=== PATIENT | male | born 1965 | race Caucasian/White ===

== ENCOUNTER 2021-11-20 09:26 | Outpatient (CLI) | payer MEDICAID, OTHER ==
[2021-11-20 12:25] LABS: BASOPHILS % (AUTO) 0.6 %; EOSINOPHILS # (AUTO) 0.1 10^3/uL (0.0-0.7); EOSINOPHILS % (AUTO) 2.2 %; HCT - HEMATOCRIT 47.5 % (42.0-52.0); HGB - HEMOGLOBIN 16.6 g/dL (14.0-18.0); LYMPHOCYTES # (AUTO) 1.8 10^3/uL (1.5-3.5); LYMPHOCYTES % (AUTO) 34.5 %; MEAN CORPUSCULAR HEMOGLOBIN 32.3 pg (27.0-31.0); MEAN CORPUSCULAR HGB CONC 34.9 g/dL (32.0-36.0); MEAN CORPUSCULAR VOLUME 92.4 fL (80.0-94.0); MONOCYTES # (AUTO) 0.4 10^3/uL (0.0-1.0); MONOCYTES % (AUTO) 8.5 %; NEUTROPHILS # (AUTO) 2.7 10^3/uL (1.5-6.6); PLT - PLATELET COUNT 185 10^3/uL (130-450); RED BLOOD COUNT 5.14 10^6/uL (4.70-6.10); RED CELL DISTRIBUTION WIDTH 13.9 % (12.0-15.0); WHITE BLOOD COUNT 5.1 x10^3/uL (4.8-10.8)
[2021-11-20 13:10] LABS: THYROID STIMULATING HORMONE 2.72 uIU/mL (0.34-5.60)
[2021-11-20 13:13] LABS: FERRITIN 53.6 ng/mL (23.9-336.2)
[2021-11-20 13:22] LABS: % IRON SATURATION 49 % (20-50); ALBUMIN 4.3 g/dL (3.2-5.5); ALBUMIN/GLOBULIN RATIO 1.4 (1.0-2.2); ALKALINE PHOSPHATASE 56 IU/L (42-121); ALT ALANINE AMINOTRANSFERASE 39 IU/L (10-60); AST ASPARTATE AMINOTRANSFERASE 29 IU/L (10-42); BILIRUBIN,TOTAL 1.6 mg/dL (0.2-1.0); BUN - BLOOD UREA NITROGEN 16 mg/dL (6-20); CALCIUM 9.2 mg/dL (8.5-10.3); CARBON DIOXIDE - CO2 28 mmol/L (21-32); CHLORIDE 103 mmol/L (101-111); CREATININE 0.8 mg/dL (0.6-1.2); GFR - MDRD 100 (>89); GLUCOSE 127 mg/dL (70-100); IRON 182 ug/dL (45-182); POTASSIUM 3.5 mmol/L (3.5-5.0); SODIUM 137 mmol/L (135-145); TOTAL IRON BINDING CAPACITY 372 ug/dL (250-450); TOTAL PROTEIN 7.3 g/dL (6.7-8.2); TRANSFERRIN 266 mg/dL (180-329)
[2021-11-20 13:50] LABS: CHOL/HDL RATIO 3.1 (<5.0); CHOLESTEROL 111 mg/dL; HDL CHOLESTEROL 36 mg/dL; LDL CHOLESTEROL,CALCULATED 47 mg/dL; LDL/HDL RATIO 1.3 (<3.6); TRIGLYCERIDES 139 mg/dL; VLDL CHOLESTEROL 28 mg/dL
== END 2021-11-20 09:27 | disposition home or self-care (01) ==
LOC: LAB.N 09:26
PROVIDERS: ATTEND Family Medicine
DX: I10 Essential (primary) hypertension (principal); G70.9 Myoneural disorder, unspecified; D75.1 Secondary polycythemia
CPT/HCPCS: 36415; 80053; 80061; 82728; 83540; 83721; 84443; 84466; 85025

== ENCOUNTER 2021-11-21 22:34 | Emergency (ER) | payer MEDICAID ==
--- NOTE | 2021-11-22 02:35 | ED Physician Documentation ---
History of Present Illness - Stated complaint Stated Complaint: HBP - Chief complaint Chief Complaint: General - History obtained from History obtained from: Patient - History of Present Illness Timing: Today Pain level now: 0 - Additonal information Additional information: Has vague headache all day which he has difficulty describing, says it just feels weird and described something of a fullness sensation of his head. He has not been checking his blood pressures, but today he used a relatives BP cuff and had readings initially 140s/80s, then as high as 210/95. At that time he took a clonidine, which he has as a PRN rx with parameters when to take it. His blood pressure has improved to 157/93 by the time of this evaluation and his symptoms have resolved. Patient had outpatient blood work 11/20 (normal CBC, normal CMP, glucose 127, total bilirubin 1.6). Review of Systems Constitutional: reports: Reviewed and negative Eyes: reports: Reviewed and negative Ears: reports: Reviewed and negative Nose: reports: Reviewed and negative Cardiac: reports: Reviewed and negative Respiratory: reports: Reviewed and negative GI: reports: Reviewed and negative Neurologic: reports: Headache. denies: Generalized weakness, Focal weakness, Numbness, Difficulty speaking, Near syncope, Syncope, Seizure, Confused, Altered mental status, Unresponsive, Head injury, LOC PD PAST MEDICAL HISTORY - Past Medical History Past Medical History: Yes Cardiovascular: Hypertension, High cholesterol Respiratory: None Neuro: None Endocrine/Autoimmune: None GI: None : None HEENT: None Psych: None Musculoskeletal: None Derm: None Other Past Medical History: NEUROMUSCULAR DISORDER.. - Past Surgical History Past Surgical History: Yes HEENT: Tonsil/Adenoidectomy - Present Medications Home Medications: Ambulatory Orders Medication Instructions Recorded Confirmed Clonidine HCl [Clonidine HCl ER] 0.1 mg PO BID 11/22/21 11/22/21 Furosemide [Lasix] 20 mg PO BID 11/22/21 11/22/21 Gabapentin [Neurontin] 300 mg PO TID 11/22/21 11/22/21 Metoprolol Succinate [Toprol Xl] 25 mg PO DAILY 11/22/21 11/22/21 Potassium Chloride [Klor-Con M20] 20 meq PO DAILY 11/22/21 11/22/21 Tamsulosin [Flomax] 0.8 mg PO DAILY 11/22/21 11/22/21 Valsartan 320 mg PO DAILY 11/22/21 11/22/21 Zolpidem [Ambien] 10 mg PO HS 11/22/21 11/22/21 amLODIPine [Norvasc] 10 mg PO DAILY 11/22/21 11/22/21 - Allergies Allergies/Adverse Reactions: Allergies Allergy/AdvReac Type Severity Reaction Status Date / Time No Known Drug Allergies Allergy Verified 11/21/21 22:52 - Social History Does the pt smoke?: No Smoking Status: Never smoker Does the pt drink ETOH?: No Does the pt have substance abuse?: No - Immunizations Immunizations are current?: Yes - POLST Patient has POLST: No PD ED PE NORMAL - Vitals Vital signs reviewed: Yes - General General: Alert and oriented X 3, No acute distress, Well developed/nourished - HEENT HEENT: PERRL, EOMI - Neck Neck: Thyroid normal - Cardiac Cardiac: RRR, No murmur, No gallop, No rub - Respiratory Respiratory: No respiratory distress, Clear bilaterally - Neuro Neuro: Alert and oriented X 3 Results - Vitals Vitals: Oxygen O2 Source Room air PD MEDICAL DECISION MAKING - ED course Complexity details: considered differential, d/w patient ED course: presents with arguably asymptomatic hypertension (feel weird all week, says his head isnt really a headache but just feels full and weird). His blood pressures are mildly elevated in ED, with some borderline high readings at home (140s/80s) and one reading 210/95. No emergent testing indicated at this time given lack of concerning, specific symptoms and considering his recent (outpatient) blood tests which are mostly normal with few abnormalities that are not concerning nor relevant to his HTN. We discussed options for blood pressure control. I advised him to continue to measure his blood pressures 2-3 times per day and arrange follow up with PMD to see if adjustments in his medications are needed. In the meantime, he is to continue using the clonidine PRN with whatever parameters he was previously provided. I also advised him to up his Toprol XL from 25 mg PO QAM to 50mg PO QAM. Departure - Departure Disposition: Home, Self Care Clinical Impression: Hypertension Qualifiers: Hypertension type: primary hypertension Qualified Code(s): I10 - Essential (primary) hypertension Condition: Good Instructions: ED Hypertension Conf Out Of Control Follow-Up: Ernesto Gill MD [Primary Care Provider] - Comments: As we discussed, it appears that your blood pressures are not being controlled with your current medications. I recommend that you increase the Toprol XL to 2 tablets each morning (50mg total each morning). Monitor and record your blood pressures 2-3 times per day and make an appointment with your primary care provider to see if they want to continue this higher dose of Toprol and/or if they want any other changes to be made (which will likely depend on your blood pressure readings after increasing the dose of Toprol XL). Discharge Date/Time: 11/22/21 03:00
[2021-11-22 02:53] VITALS: BP 156/98
== END 2021-11-22 03:00 | disposition home or self-care (01) ==
LOC: ED 22:34
DX: I10 Essential (primary) hypertension (principal)
CPT/HCPCS: 99282; 99283

== ENCOUNTER 2021-11-27 11:48 | Outpatient (CLI) | payer MEDICAID ==
[2021-11-27 20:43] LABS: ESTIMATED AVERAGE GLUCOSE 111 mg/dL (70-100); HEMOGLOBIN A1c% 5.5 % (4.27-6.07)
== END 2021-11-27 11:49 | disposition home or self-care (01) ==
LOC: LAB.N 11:48
PROVIDERS: ATTEND Family Medicine
DX: R73.9 Hyperglycemia, unspecified (principal)
CPT/HCPCS: 36415; 83036

== ENCOUNTER 2022-03-06 10:55 | Outpatient (CLI) | payer MEDICAID ==
--- NOTE | 2022-03-06 17:40 | XRAY Report ---
PROCEDURE: Chest 2 View X-Ray INDICATIONS: DYSPNEA ON EXERTION TECHNIQUE: 2 view(s) of the chest. COMPARISON: None. FINDINGS: Surgical changes and devices: parts salesman.. Lungs and pleura: No pleural effusions or pneumothorax. Lungs are clear. Mediastinum: Mediastinal contours are normal. Heart size is normal. Bones and chest wall: No suspicious bony abnormalities. Soft tissues appear unremarkable. IMPRESSION: No acute cardiopulmonary disease process. Reviewed by: Marika Wei MD, PhD on 03/06/2022 5:38 PM PDT Approved by: Marika Wei MD, PhD on 03/06/2022 5:38 PM PDT Station ID: [id number]
== END 2022-03-06 10:56 | disposition home or self-care (01) ==
LOC: DI.N 10:55
PROVIDERS: ATTEND Physician Assistant Medical
DX: R06.09 Other forms of dyspnea (principal)

== ENCOUNTER 2022-07-06 08:55 | Outpatient (CLI) | payer OTHER ==
[2022-07-06 13:02] LABS: ALBUMIN 4.2 g/dL (3.2-5.5); ALBUMIN/GLOBULIN RATIO 1.5 (1.0-2.2); BILIRUBIN,TOTAL 1.3 mg/dL (0.2-1.0); CALCIUM 9.5 mg/dL (8.5-10.3); CREATININE 0.9 mg/dL (0.6-1.2)
== END 2022-07-06 08:56 | disposition home or self-care (01) ==
LOC: LAB.N 08:55
PROVIDERS: ATTEND Physician Assistant
DX: R10.13 Epigastric pain (principal)
CPT/HCPCS: 36415; 80053; 82150; 83690

== ENCOUNTER 2022-09-21 12:40 | Outpatient (CLI) | payer OTHER | END 2022-09-21 12:41 | disposition home or self-care (01) | LOC: SC 12:40 | PROVIDERS: ATTEND Nurse Practitioner Family | DX: G47.33 Obstructive sleep apnea (adult) (pediatric) (principal); R09.02 Hypoxemia | CPT/HCPCS: 95806 ==

== ENCOUNTER 2022-11-14 12:47 | Outpatient (CLI) | payer MEDICARE, MEDICAID ==
[2022-11-14 13:14] VITALS: BP 142/80
--- NOTE | 2022-11-14 13:14 | SLEEP CARE CONSULTATION ---
Information from patient questionnaire entered by Ana Plummer. I have reviewed and concur with the information entered by Ana Plummer. This document represents the service I personally performed and the decisions made by , Orquidea Hinojosa ARNP. History of Present Illness Service Date and Time: 11/14/2022 1247 Initial [place] Sleepiness Scale score: 5 (06/28/22) Current [place] Sleepiness Scale score: 4 (11/14/22) Additional HPI information: BALA BETANCOURT returns for follow up and results of the recently performed home sleep study. He was found to have mild obstructive sleep apnea with an average AHI of 14.7 and doris oxygen saturation of 82% with only 18.8 minutes spent under 90% and a normal average oxygen level of 93%. He is to continue with his nasal CPAP therapy with pressure set at 5-15 cmH2O. Patient counseled not drink alcohol less than 4 hours before bedtime as it can increase snoring and apnea. Patient was cautioned about risks of drowsy driving until sleepiness symptoms resolve. Patient denies drowsy driving. Sleep Study - Results Type of Sleep Study: Home sleep study (COMPLETED 09-22-22) Prior sleep studies: Yes Year and Where: most recent summer or fall 2020 [place], years before in [place] Polysomnography/Home Sleep Study results: Physician Impression: The quality of the study is good. The length of the study is adequate (> 240 minutes). Please also see the tabulated and graphic data. 1. Obstructive Sleep Apnea-Hypopnea (ICD-10 G47.33), mild, with an AHI of 14.7/hr and doris SaO2 of 82%. During the study, the patient had 100 apneas (100 obstructive, 0 central, 0 mixed) and 22 hypopneas. The longest episode lasted 56.0 seconds. The patient did not sleep supine during this study. 2. Hypoxemia (ICD-10 R09.02), mild, with the lowest oxygen saturation of 82 % and 18.8 minutes with SaO2 under 90%. Baseline oxygen saturation was normal (Average oxygen saturation was 93%). Allergies and Home Medications Drug allergies reviewed: Yes (NKDA) Home medication list reviewed: Yes (no changes) Review of Systems Review of systems same as previous: Yes (no changes) Physical Exam Vital signs obtained and entered by: ANA Carlson MA Blood Pressure: 142/80 (left arm) Cuff size: regular Heart Rate: 65 O2 Saturation: 98 Height: 6 ft 3 in Weight: 278 lb 9.6 oz Body Mass Index: 34.8 BMI Classification: Obese Impression and Plan 1. Obstructive Sleep Apnea-Hypopnea Syndrome, mild, with lowest oxygen saturation of 82%. Patient returned today for results of verifying HST. Patient will be continued on nasal autoCPAP therapy with pressure set at 5-15 cmH2O. His results will be faxed to his choice of DME for him to be able to get supplies. His apnea is well controlled at his current settings and he is satisfied with CPAP therapy. Patient's apnea severity and rationale for treatment to reduce apnea, improve sleep quality and reduce cardiovascular and cerebrovascular events was reviewed. I also reviewed the benefit of consistent device use of CPAP for hypertension. 2. Obesity, unspecified. Currently patients BMI is 34.8. Obesity increases the risk of apnea, CPAP pressure requirements and overall health risks especially cardiovascular and diabetes. Thus patient is advised to lose weight. The patient's CPAP pressure range should accommodate some weight loss. * Continue auto CPAP pressure at 5-15 cmH2O * Transfer DME * Update supplies * Notify me if snoring with mask or feeling that the pressure is too much or too little * Attempt to lose weight * Call this office if any problems using CPAP * Return for follow up in 1 year, or sooner if concerns arise Counseling Topics: Weight loss health impact Visit Type: In Office Time Spent with Patient (minutes): 20 Provider Statement: I spent 100% of the Face to Face Visit with the patient with greater than 50% spent counseling the patient and coordination of care.
== END 2022-11-14 12:48 | disposition home or self-care (01) ==
LOC: SC 12:47
PROVIDERS: ATTEND Nurse Practitioner Family
DX: G47.33 Obstructive sleep apnea (adult) (pediatric) (principal); E66.9 Obesity, unspecified; Z68.34 Body mass index [BMI] 34.0-34.9, adult
CPT/HCPCS: 99213; G0463; 99212

== ENCOUNTER 2022-11-23 07:23 | Day surgery (SDC) | payer MEDICARE, MEDICAID ==
--- NOTE | 2022-11-23 07:47 | ANESTHESIA ---
Pre-Anesthesia VS, & Labs - Diagnosis epigastric pain, colon polyps - Procedure colonoscopy, EGD Height: 6 ft 3 in Weight (kg): 122 kg Body Mass Index: 33.6 BMI Classification: Obese - NPO Other (prep as directed) Home Medications and Allergies Furosemide [Lasix] 20 mg PO BID 11/22/21 Gabapentin [Neurontin] 600 mg PO HS 11/22/21 Metoprolol Succinate [Toprol Xl] 100 mg PO DAILY 11/22/21 Potassium Chloride [Klor-Con M20] 20 meq PO DAILY 11/22/21 Tamsulosin [Flomax] 0.8 mg PO HS 11/22/21 Valsartan 320 mg PO DAILY 11/22/21 Zolpidem [Ambien] 10 mg PO HS 11/22/21 amLODIPine [Norvasc] 10 mg PO DAILY PRN 11/22/21 cloNIDine 0.3 MG PATCH [Rqmvoips-Zrv-2] 1 each TOP 06/07/22 Aspirin EC [Ecotrin] 81 mg PO DAILY 09/08/22 Atorvastatin Calcium 40 mg PO HS 09/08/22 Cholecalciferol (Vitamin D3) [Vitamin D3] 1,000 unit PO 09/08/22 Fluticasone Propionate [Xhance] 50 mcg JOURDAN PRN 09/08/22 Mecobalamin [B12 Active] 1,000 mcg PO DAILY 09/08/22 [place] 3,6/Dha/Alysia/Schizo/Mort [Enfamil Dha-Alysia 110 mg/ml Drop] 600 mg PO DAILY 09/08/22 Senna [Senokot] 17.4 mg PO DAILY PRN 09/08/22 Zinc Gluconate [Zinc] 50 mg PO DAILY 09/08/22 cloNIDine [Catapres] 0.1 mg PO BID PRN 09/08/22 clomiPHENE citrate [Clomid] 50 mg PO 09/08/22 hydrALAZINE [Apresoline] 50 mg PO TID 09/08/22 Allergies/Adverse Reactions: Allergies Allergy/AdvReac Type Severity Reaction Status Date / Time No Known Drug Allergies Allergy Verified 11/14/22 12:59 Anes History & Medical History - Anesthetic History Anesthesia Complications: reports: No previous complications - Medical History Cardiovascular: reports: Hypertension, Other Pulmonary: reports: Sleep apnea Gastrointestinal: reports: Colon polyps, Other Urinary: reports: Benign prostate hypertrophy Neuro: reports: Other Musculoskeletal: reports: Paraplegia, Other (some undiagnosed neuromuscular distorder, has seen multiple neurologists, has weakness, neuropathy of arms and legs at times. no symptoms today.) Endocrine/Autoimmune: reports: None Blood Disorders: reports: None Skin: reports: None Smoking Status: Never smoker - Surgical History General: reports: Colonoscopy Eyes Ears Nose Throat (EENT): reports: Tonsil/Adenoidectomy Exam General: Alert, Oriented x3 Dental: WNL Mouth Opening: Greater than 4 Fingerbreadths Neck Mobility: Normal Mallampati classification: III Thyromental Distance: greater than 6 cm Respiratory: Lungs clear Cardiovascular: Regular rate Plan Anesthesia Type: Total IV Consent for Procedure(s) Verified and Reviewed: Yes Code Status: Attempt Resuscitation ASA classification: 3-Severe systemic disease Is this case an emergency?: No
[2022-11-23] MEDS ORDERED: LACTATED RINGERS 1,000 ML IV ONE (07:53)
--- NOTE | 2022-11-23 08:31 | HISTORY & PHYSICAL EXAMINATION ---
Chief Complaint - Chief Complaint Chief Complaint: history epigastric pain and colon polyps History of Present Illness - History Obtained From Records Reviewed: yes History obtained from: pt Exam Limitations: none - History of Present Illness HPI Comment/Other: here for egd and colonoscopy History - Past Medical History Cardiovascular: reports: Hypertension, Other Respiratory: reports: Sleep apnea Neuro: reports: Other Endocrine/Autoimmune: reports: None GI: reports: Colon polyps, Other : reports: Benign prostate hypertrophy HEENT: reports: None Psych: reports: None Musculoskeletal: reports: Paraplegia, Other (some undiagnosed neuromuscular distorder, has seen multiple neurologists, has weakness, neuropathy of arms and legs at times. no symptoms today.) Derm: reports: None MRSA Hx?: No - Past Surgical History General: reports: Colonoscopy HEENT: reports: Tonsil/Adenoidectomy - POLST Patient has POLST: No Meds/Allgy - Home Medications Home Medications: Ambulatory Orders Medication Instructions Recorded Confirmed Furosemide [Lasix] 20 mg PO BID 11/22/21 09/08/22 Gabapentin [Neurontin] 600 mg PO HS 11/22/21 09/08/22 Metoprolol Succinate [Toprol Xl] 100 mg PO DAILY 11/22/21 09/08/22 Potassium Chloride [Klor-Con M20] 20 meq PO DAILY 11/22/21 09/08/22 Tamsulosin [Flomax] 0.8 mg PO HS 11/22/21 09/08/22 Valsartan 320 mg PO DAILY 11/22/21 11/23/22 Zolpidem [Ambien] 10 mg PO HS 11/22/21 09/08/22 amLODIPine [Norvasc] 10 mg PO DAILY PRN 11/22/21 09/08/22 cloNIDine 0.3 MG PATCH 1 each TOP 06/07/22 06/07/22 [[id number]] Aspirin EC [Ecotrin] 81 mg PO DAILY 09/08/22 09/08/22 Atorvastatin Calcium 40 mg PO HS 09/08/22 09/08/22 Cholecalciferol (Vitamin D3) 1,000 unit PO 09/08/22 [Vitamin D3] Fluticasone Propionate [Xhance] 50 mcg JOURDAN PRN 09/08/22 Mecobalamin [B12 Active] 1,000 mcg PO DAILY 09/08/22 09/08/22 [place] 3,6/Dha/Alysia/Schizo/Mort 600 mg PO DAILY 09/08/22 09/08/22 [Enfamil Dha-Alysia 110 mg/ml Drop] Senna [Senokot] 17.4 mg PO DAILY PRN 09/08/22 09/08/22 Zinc Gluconate [Zinc] 50 mg PO DAILY 09/08/22 09/08/22 cloNIDine [Catapres] 0.1 mg PO BID PRN 09/08/22 09/08/22 clomiPHENE citrate [Clomid] 50 mg PO 09/08/22 hydrALAZINE [Apresoline] 50 mg PO TID 09/08/22 11/23/22 - Allergies Allergies/Adverse Reactions: Allergies Allergy/AdvReac Type Severity Reaction Status Date / Time No Known Drug Allergies Allergy Verified 11/14/22 12:59 Review of Systems - Other Findings Other Findings: 10 pt ros as above otherwise unremarkable Exam - Vital Signs Reviewed Vital Signs: Yes Vital Signs: Vital Signs x48h Temp Pulse Resp BP Pulse Ox 11/23/22 07:45 36.2 C L 69 11 L 140/76 H 98 - Physical Exam General Appearance: positive: No acute distress, Alert Eyes Bilateral: positive: PERRL, EOMI ENT: positive: No signs of dehydration Neck: positive: No JVD, Trachea midline Respiratory: positive: No respiratory distress, Breath sounds nml Cardiovascular: positive: Regular rate & rhythm Abdomen: positive: Non-tender, No distention Neurologic/Psychiatric: positive: Oriented x3 Conclusion/Plan - Problem List (1) History of adenomatous polyp of colon Conclusion/Plan: plan colonoscopy and egd for history epigastric pain. parq held and consent obtained
[2022-11-23] MEDS ORDERED: PROPOFOL 200 MG/20 ML VIAL IVP ONE ×4 (08:46→09:36)
[2022-11-23] MEDS ORDERED: PROPOFOL 500 MG/50 ML 500 MG/50 ML VIAL ONE (08:46)
[2022-11-23] MEDS ORDERED: LACTATED RINGERS 600 ML IV ONE (09:39)
[2022-11-23 10:03] VITALS: BP 125/65
--- NOTE | 2022-11-23 10:24 | ANESTHESIA POST OP EVALUATION ---
Anesthesia Post Eval - Post Anesthesia Eval Vitals: Last Vital Signs Temp 36.1 C L 11/23/22 10:01 Pulse 52 L 11/23/22 10:01 Resp 16 11/23/22 10:01 BP 125/65 11/23/22 10:01 Pulse Ox 100 11/23/22 10:01 O2 Flow Rate CV Function Including HR & BP: Stable Pain Control: Satisfactory Nausea & Vomiting: Negative Mental Status: Baseline Respiratory Status: Airway Patent Hydration Status: Satisfactory Anesthesia Complications: None
== END 2022-11-23 07:24 | disposition home or self-care (01) ==
LOC: SDS 07:23
PROVIDERS: ATTEND Surgery
PROC: 0DB78ZX Excision of Stomach, Pylorus, Via Natural or Artificial Opening Endoscopic, Diagnostic (ICD-10-PCS; 2022-11-23)
PROC: 0DB38ZX Excision of Lower Esophagus, Via Natural or Artificial Opening Endoscopic, Diagnostic (ICD-10-PCS; 2022-11-23)
PROC: 0DBK8ZZ Excision of Ascending Colon, Via Natural or Artificial Opening Endoscopic (ICD-10-PCS; principal; 2022-11-23 08:30)
PROC: 0DB48ZX Excision of Esophagogastric Junction, Via Natural or Artificial Opening Endoscopic, Diagnostic (ICD-10-PCS; 2022-11-23 08:30)
DX: Z12.11 Encounter for screening for malignant neoplasm of colon (principal); R10.13 Epigastric pain; K63.5 Polyp of colon; K25.9 Gastric ulcer, unspecified as acute or chronic, without hemorrhage or perforation; K29.50 Unspecified chronic gastritis without bleeding; K20.90 Esophagitis, unspecified without bleeding; G47.30 Sleep apnea, unspecified; E66.9 Obesity, unspecified; Z68.33 Body mass index [BMI] 33.0-33.9, adult; G82.20 Paraplegia, unspecified
CPT/HCPCS: 43239; 45380; J7120

== ENCOUNTER 2022-12-05 11:56 | Outpatient (CLI) | payer MEDICARE, MEDICAID ==
[2022-12-05 18:17] LABS: BASOPHILS % (AUTO) 0.9 %; EOSINOPHILS # (AUTO) 0.1 10^3/uL (0.0-0.7); EOSINOPHILS % (AUTO) 2.3 %; HCT - HEMATOCRIT 46.2 % (42.0-52.0); HGB - HEMOGLOBIN 15.5 g/dL (14.0-18.0); LYMPHOCYTES # (AUTO) 1.5 10^3/uL (1.5-3.5); LYMPHOCYTES % (AUTO) 33.8 %; MEAN CORPUSCULAR HEMOGLOBIN 32.6 pg (27.0-31.0); MEAN CORPUSCULAR HGB CONC 33.5 g/dL (32.0-36.0); MEAN CORPUSCULAR VOLUME 97.3 fL (80.0-94.0); MEAN PLATELET VOLUME 10.7 fL (7.4-11.4); MONOCYTES # (AUTO) 0.5 10^3/uL (0.0-1.0); MONOCYTES % (AUTO) 10.6 %; NEUTROPHILS # (AUTO) 2.3 10^3/uL (1.5-6.6); NEUTROPHILS % (AUTO) 52.2 %; PLT - PLATELET COUNT 183 10^3/uL (130-450); RED BLOOD COUNT 4.75 10^6/uL (4.70-6.10); RED CELL DISTRIBUTION WIDTH 13.8 % (12.0-15.0); WHITE BLOOD COUNT 4.4 x10^3/uL (4.8-10.8)
[2022-12-05 18:42] LABS: THYROID STIMULATING HORMONE 2.41 uIU/mL (0.34-5.60)
[2022-12-05 19:05] LABS: ALBUMIN 4.1 g/dL (3.2-5.5); ALBUMIN/GLOBULIN RATIO 1.5 (1.0-2.2); ALKALINE PHOSPHATASE 64 IU/L (42-121); ALT ALANINE AMINOTRANSFERASE 30 IU/L (10-60); AST ASPARTATE AMINOTRANSFERASE 23 IU/L (10-42); BILIRUBIN,TOTAL 1.2 mg/dL (0.2-1.0); BUN - BLOOD UREA NITROGEN 10 mg/dL (6-20); CALCIUM 9.3 mg/dL (8.5-10.3); CARBON DIOXIDE - CO2 28 mmol/L (21-32); CHLORIDE 107 mmol/L (101-111); CHOL/HDL RATIO 2.5 (<5.0); CHOLESTEROL 94 mg/dL; CREATININE 0.8 mg/dL (0.6-1.2); GFR - MDRD 100 (>89); GLUCOSE 100 mg/dL (70-100); HDL CHOLESTEROL 38 mg/dL; LDL CHOLESTEROL,CALCULATED 31 mg/dL; LDL/HDL RATIO 0.8 (<3.6); POTASSIUM 4.3 mmol/L (3.5-5.0); SODIUM 141 mmol/L (135-145); TOTAL PROTEIN 6.8 g/dL (6.7-8.2); TRIGLYCERIDES 123 mg/dL; VLDL CHOLESTEROL 25 mg/dL
[2022-12-05 19:07] LABS: CRP - C-REACTIVE PROTEIN < 1.0 mg/dL (0-1.0)
[2022-12-05 20:22] LABS: ESTIMATED AVERAGE GLUCOSE 97 mg/dL (70-100)
[2022-12-05 20:36] LABS: RHEUMATOID FACTOR NEGATIVE (Negative)
[2022-12-10 13:10] LABS: ANTINUCLEAR ANTIBODIES IFA Negative (.)
== END 2022-12-05 11:57 | disposition home or self-care (01) ==
LOC: LAB.N 11:56
PROVIDERS: ATTEND Family Medicine
DX: I10 Essential (primary) hypertension (principal); R68.83 Chills (without fever); I25.10 Atherosclerotic heart disease of native coronary artery without angina pectoris; G31.9 Degenerative disease of nervous system, unspecified; R73.9 Hyperglycemia, unspecified; F41.8 Other specified anxiety disorders; G47.33 Obstructive sleep apnea (adult) (pediatric)
CPT/HCPCS: 36415; 80053; 80061; 83036; 83721; 84443; 85025; 85651; 86038; 86140; 86430

== ENCOUNTER 2023-01-24 13:13 | Outpatient (CLI) | payer MEDICARE, MEDICAID ==
[2023-01-24 18:06] LABS: THYROID STIMULATING HORMONE 1.27 uIU/mL (0.34-5.60)
== END 2023-01-24 13:14 | disposition home or self-care (01) ==
LOC: LAB.N 13:13
PROVIDERS: ATTEND Internal Medicine Nephrology
DX: I10 Essential (primary) hypertension (principal)
CPT/HCPCS: 36415; 81001; 82043; 82088; 82570; 83835; 83970; 84156; 84244; 84443; 87086

== ENCOUNTER 2023-01-25 08:39 | Outpatient (CLI) | payer MEDICARE, MEDICAID ==
[2023-01-25 09:03] LABS: BILIRUBIN,URINE NEGATIVE (NEGATIVE); GLUCOSE, URINE (UA) NEGATIVE (NEGATIVE); KETONES,URINE (UA) NEGATIVE (NEGATIVE); LEUKOCYTE ESTERASE, URINE NEGATIVE (NEGATIVE); NITRITE,URINE NEGATIVE (NEGATIVE); OCCULT BLOOD,URINE NEGATIVE (NEGATIVE); PH,URINE 6.5 PH (5.0-7.5); PROTEIN,URINE NEGATIVE (NEGATIVE); UROBILINOGEN,URINE 2 E.U./dL (NORMAL)
[2023-01-25 09:14] LABS: CREATININE,URINE 136.7 mg/dL; PROTEIN/CREATININE RATIO,URINE 0.1 (<=0.2)
[2023-01-25 10:18] LABS: BACTERIA,URINE None Seen /HPF (None Seen); CLARITY,URINE CLEAR (CLEAR); RBC,URINE None Seen /HPF (0-5); SQUAMOUS EPITHELIAL CELL,UR RARE Squamous (<= Few); WBC,URINE 0-3 /HPF (0-3)
== END 2023-01-25 08:40 | disposition home or self-care (01) ==
LOC: LAB 08:39
PROVIDERS: ATTEND Internal Medicine Nephrology
DX: I10 Essential (primary) hypertension (principal)
CPT/HCPCS: 36415; 81001; 82533; 82570; 84156; 87086

== ENCOUNTER 2023-01-28 11:28 | Outpatient (CLI) | payer MEDICARE, MEDICAID | END 2023-01-28 11:29 | disposition home or self-care (01) | LOC: LAB.R 11:28 | PROVIDERS: ATTEND Internal Medicine Nephrology | DX: I10 Essential (primary) hypertension (principal) | CPT/HCPCS: 81599; 82384; 84585 ==

== ENCOUNTER 2023-02-07 13:54 | Outpatient (CLI) | payer MEDICARE, MEDICAID ==
--- NOTE | 2023-02-07 13:56 | SLEEP CARE CONSULTATION ---
Information from patient questionnaire entered by Ana Plummer. I have reviewed and concur with the information entered by Ana Plummer. This document represents the service I personally performed and the decisions made by me, Orquidea Hinojosa ARNP. History of Present Illness Service Date and Time: 02/07/2023 1340 Previous diagnosis: Mild, Obstructive Sleep Apnea-Hypopnea Syndrome AHI: 14.7 (in 2021) Reason for follow up: first compliance Equipment type: CPAP (RESMED Airsense 11; s/u 11/2022) Equipment obtained from: Other ([facility]; getting supplies) Mask style: Full face Backup mask available: Yes (old mask) Last cushion change: 2 weeks Prior sleep studies: Yes Year and Where: most recent summer or fall 2020 [place], years before in [place] Type of Sleep Study: Home sleep study HPI additional information: BALA BETANCOURT was diagnosed to have mild, AHI 14.7, obstructive sleep apnea- hypopnea syndrome and returns via video telehealth visit today for CPAP therapy first compliance follow-up. Sleep Study - Results Type of Sleep Study: Home sleep study Prior sleep studies: Yes Year and Where: most recent summer or fall 2020 [place], years before in [place] CPAP Compliance Data - Data Reviewed with Patient Average duration of nightly device use: 5 HRS 51 MINS Compliance rate %: 90 (01/07/23-02/05/23; 30/30 days used) Current pressure setting (cmH2O): 5-15 (median 8.8, avg 11.9, max 13.2) Average residual AHI: 3.7 Central apnea: 0.1 Obstructive apnea: 0.9 Hypopnea: 2.6 Average large leak: 0.8 L/min Subjective Patient concerns: reports: mask discomfort. denies: aerophagia, air blowing in eyes, mask leak noise, condensation in mask/hose, nasal congestion, dry mouth, nose, throat, epistaxis Observed to snore while using device: No Current pressure setting perceived as: comfortable On therapy, patient: reports: sleeping better, awakening more refreshed, being more awake and alert during the day, more rested overall. denies: drowsiness while driving Initial [place] Sleepiness Scale score: 5 (06/28/22) Current [place] Sleepiness Scale score: 5 (02/07/23) Allergies and Home Medications Known drug allergies: No Drug allergies reviewed: Yes Home medication list reviewed: Yes (see updated list in EMR) Allergy and home medication list: Allergies No Known Drug Allergies Allergy (Verified 02/06/23 15:36) Review of Systems Review of systems same as previous: Yes (no changes) Physical Exam Vital signs obtained and entered by: ANA Carlson MA Blood Pressure: 123/76 (PER PT) Height: 6 ft 3 in (PER PT) Weight: 280 lb (PER PT) Body Mass Index: 34.9 BMI Classification: Obese Impression and Plan 1. Obstructive Sleep Apnea-Hypopnea Syndrome, mild, with good treatment compliance and good apnea control. On CPAP therapy, the patient has better sleep quality and is more rested overall. He was given a full face mask that is different than the one he is used to using. He was using a ResMed F20 and felt it was comfortable. I will write for a mask refitting for a full face mask. He was instructed to call them if he does not hear out of them in the next week. He voiced understanding. The patients pressure will be changed to autoCPAP 9-14 cmH20 to reflect pressures being used. Patient advised to contact me if pressure change is uncomfortable so that it can be adjusted. Goals for apnea control discussed. Patient's apnea severity and rationale for treatment to reduce apnea, improve sleep quality and reduce cardiovascular and cerebrovascular events was reviewed. I also reviewed the benefit of consistent device use of CPAP for hypertension. 2. Obesity, unspecified. Currently patients BMI is 34.9. Obesity increases the risk of apnea, CPAP pressure requirements and overall health risks especially cardiovascular and diabetes. Thus patient is advised to lose weight. * Mask refitting for full face mask * Change auto CPAP pressure to 9-14 cmH2O * Notify me if snoring with mask or feeling that the pressure is too much or too little * Attempt to lose weight * Call this office if any problems using CPAP * Return for follow up in 3 months, or sooner if concerns arise Counseling Topics: Spare mask, Weight loss health impact Visit Type: Telehealth Video Video Type: Doximity Patient Location: Home Location of Provider: Office Patient agrees and consents to this telehealth visit type: Yes Patient agrees to have their insurance billed: Yes Time Spent with Patient (minutes): 16 Provider Statement: I spent 100% of the Telehealth Video Call with the patient with greater than 50% spent counseling the patient and coordination of care.
[2023-02-07 14:13] VITALS: BP 123/76
== END 2023-02-07 13:55 | disposition home or self-care (01) ==
LOC: SC 13:54
PROVIDERS: ATTEND Nurse Practitioner Family
DX: G47.33 Obstructive sleep apnea (adult) (pediatric) (principal); E66.9 Obesity, unspecified; Z68.34 Body mass index [BMI] 34.0-34.9, adult

== ENCOUNTER 2023-03-13 10:46 | Outpatient (CLI) | payer MEDICARE, MEDICAID ==
[2023-03-13 11:18] LABS: CREATININE,URINE 124.5 mg/dL
[2023-03-13 11:45] LABS: FOLATE 21.88 ng/mL (5.90 - >24.8)
[2023-03-15 16:08] LABS: A/G RATIO 1.4 (0.7-1.7); ALBUMIN 3.9 g/dL (2.9-4.4); ALPHA-1-GLOBULIN 0.2 g/dL (0.0-0.4); ALPHA-2-GLOBULIN 0.6 g/dL (0.4-1.0); BETA GLOBULIN 0.9 g/dL (0.7-1.3); GAMMA GLOBULIN 1.1 g/dL (0.4-1.8); GLOBULIN, TOTAL 2.8 g/dL (2.2-3.9); PROTEIN TOTAL 6.7 g/dL (6.0-8.5)
== END 2023-03-13 10:47 | disposition home or self-care (01) ==
LOC: LAB 10:46
PROVIDERS: ATTEND Psychiatry & Neurology Neurology
DX: R53.83 Other fatigue (principal); E55.9 Vitamin D deficiency, unspecified; G62.9 Polyneuropathy, unspecified; R29.898 Other symptoms and signs involving the musculoskeletal system
CPT/HCPCS: 36415; 82306; 82570; 82607; 82746; 84155; 84156; 84165; 84207; 84425

== ENCOUNTER 2023-03-19 09:38 | Outpatient (CLI) | payer MEDICARE, MEDICAID ==
[2023-03-19 10:16] LABS: CREATININE,URINE 158.4 mg/dL; MICROALBUM/CREATININE RATIO,UR 5.1 ug/mg (<30.0); MICROALBUMIN,URINE 0.8 mg/dL (0-300.0)
[2023-03-19 10:18] LABS: CALCIUM 9.2 mg/dL (8.5-10.3); CREATININE 0.9 mg/dL (0.6-1.2)
[2023-03-19 10:39] LABS: THYROID STIMULATING HORMONE 2.04 uIU/mL (0.34-5.60)
== END 2023-03-19 09:39 | disposition home or self-care (01) ==
LOC: LAB 09:38
PROVIDERS: ATTEND Internal Medicine Nephrology
DX: I10 Essential (primary) hypertension (principal)
CPT/HCPCS: 36415; 80048; 82043; 82570; 83970; 84443

== ENCOUNTER 2023-04-24 08:39 | Outpatient (CLI) | payer MEDICARE, MEDICAID ==
[2023-04-24 09:10] LABS: CALCIUM 9.3 mg/dL (8.5-10.3); CREATININE 0.9 mg/dL (0.6-1.3); POTASSIUM 3.8 mmol/L (3.5-4.5)
== END 2023-04-24 08:40 | disposition home or self-care (01) ==
LOC: LAB 08:39
PROVIDERS: ATTEND Internal Medicine Nephrology
DX: I15.9 Secondary hypertension, unspecified (principal)
CPT/HCPCS: 36415; 80048

== ENCOUNTER 2023-05-21 13:48 | Outpatient (CLI) | payer MEDICARE, MEDICAID ==
--- NOTE | 2023-05-21 13:43 | SLEEP CARE CONSULTATION ---
Information from patient questionnaire entered by Ana Plummer. I have reviewed and concur with the information entered by Ana Plummer. This document represents the service I personally performed and the decisions made by me, Orquidea Hinojosa ARNP. History of Present Illness Service Date and Time: 05/21/2023 1340 Previous diagnosis: Mild, Obstructive Sleep Apnea-Hypopnea Syndrome AHI: 14.7 (in 2021) Reason for follow up: three month (F/U ) Equipment type: CPAP (RESMED Airsense 11; s/u 11/2022) Equipment obtained from: Other ([facility]; getting supplies) Mask style: Full face Mask brand: Resmed (F20) Backup mask available: No (just ordered supplies) Last cushion change: not sure Prior sleep studies: Yes Year and Where: most recent summer or fall 2020 [place], years before in [place] Type of Sleep Study: Home sleep study HPI additional information: BALA BETANCOURT was diagnosed to have mild, AHI 14.7, obstructive sleep apnea- hypopnea syndrome and returns via video telehealth visit today for CPAP therapy three month follow-up. Sleep Study - Results Type of Sleep Study: Home sleep study Prior sleep studies: Yes Year and Where: most recent summer or fall 2020 [place], years before in [place] CPAP Compliance Data - Data Reviewed with Patient Average duration of nightly device use: 7 hours 26 minutes Compliance rate %: 53 (48/90 days used; 100% in last 30 days) Current pressure setting (cmH2O): 9-14 Average residual AHI: 2.7 Subjective Missed days of use due to: reports: mask issues (old mask hurt his face/big chunk of time) Patient concerns: reports: mask leak noise (order new). denies: aerophagia, mask discomfort, air blowing in eyes, condensation in mask/hose, nasal congestion, dry mouth, nose, throat, epistaxis Observed to snore while using device: No Current pressure setting perceived as: comfortable On therapy, patient: reports: sleeping better, awakening more refreshed, being more awake and alert during the day, more rested overall. denies: drowsiness while driving Initial [place] Sleepiness Scale score: 5 (06/28/22) Current [place] Sleepiness Scale score: 13 (05/21/23) Allergies and Home Medications Known drug allergies: No Drug allergies reviewed: Yes Home medication list reviewed: Yes (no changes) Allergy and home medication list: Allergies No Known Drug Allergies Allergy (Verified 05/20/23 09:57) Review of Systems Review of systems same as previous: Yes (no changes) Physical Exam Vital signs obtained and entered by: ANA Carlson MA Height: 6 ft 3 in ([facility]) Weight: 289 lb ([facility] PT) Body Mass Index: 36.1 BMI Classification: Obese Impression and Plan 1. Obstructive Sleep Apnea-Hypopnea Syndrome, mild, with good treatment compliance and good apnea control. On CPAP therapy, the patient has better sleep quality and is more rested overall. He was having some issues with the mask leaking and being unable to use it, but he feels these have resolved and he is now back to using the ResMed F20 with good results. His compliance is 100% in last 30 days. Patient's apnea severity and rationale for treatment to reduce apnea, improve sleep quality and reduce cardiovascular and cerebrovascular events was reviewed. I also reviewed the benefit of consistent device use of CPAP for hypertension. 2. Obesity, unspecified. Currently patients BMI is 36.1. Obesity increases the risk of apnea, CPAP pressure requirements and overall health risks especially cardiovascular and diabetes. Thus patient is advised to lose weight. * Continue auto CPAP pressure at 9-14 cmH2O * Notify me if snoring with mask or feeling that the pressure is too much or too little * Attempt to lose weight * Call this office if any problems using CPAP * Return for follow up in 6 months, or sooner if concerns arise Counseling Topics: Spare mask, Weight loss health impact Follow up with Sleep Care in: 6 months Visit Type: Telehealth Video Video Type: Len Patient Location: shopping Location of Provider: Office Patient agrees and consents to this telehealth visit type: Yes Patient agrees to have their insurance billed: Yes Time Spent with Patient (minutes): 15 Provider Statement: I spent 100% of the Telehealth Video Call with the patient with greater than 50% spent counseling the patient and coordination of care.
== END 2023-05-21 13:49 | disposition home or self-care (01) ==
LOC: SC 13:48
PROVIDERS: ATTEND Nurse Practitioner Family
DX: G47.33 Obstructive sleep apnea (adult) (pediatric) (principal); E66.9 Obesity, unspecified; Z68.36 Body mass index [BMI] 36.0-36.9, adult

== ENCOUNTER 2023-07-06 11:22 | Outpatient (CLI) | payer MEDICARE, MEDICAID ==
[2023-07-06 12:04] LABS: CREATININE,URINE 154.2 mg/dL; PROTEIN/CREATININE RATIO,URINE 0.1 (<=0.2)
== END 2023-07-06 11:23 | disposition home or self-care (01) ==
LOC: LAB 11:22
PROVIDERS: ATTEND Internal Medicine Nephrology
DX: I15.9 Secondary hypertension, unspecified (principal); I10 Essential (primary) hypertension
CPT/HCPCS: 82570; 84156

== ENCOUNTER 2023-07-06 11:26 | Outpatient (CLI) | payer MEDICARE, MEDICAID ==
[2023-07-06 11:46] LABS: BASOPHILS % (AUTO) 0.5 %; EOSINOPHILS # (AUTO) 0.2 10^3/uL (0.0-0.7); EOSINOPHILS % (AUTO) 2.6 %; HCT - HEMATOCRIT 47.9 % (42.0-52.0); HGB - HEMOGLOBIN 16.4 g/dL (14.0-18.0); LYMPHOCYTES # (AUTO) 1.5 10^3/uL (1.5-3.5); LYMPHOCYTES % (AUTO) 24.2 %; MEAN CORPUSCULAR HGB CONC 34.2 g/dL (32.0-36.0); MEAN CORPUSCULAR VOLUME 99.4 fL (80.0-94.0); MEAN PLATELET VOLUME 9.4 fL (7.4-11.4); MONOCYTES # (AUTO) 0.6 10^3/uL (0.0-1.0); MONOCYTES % (AUTO) 9.7 %; NEUTROPHILS # (AUTO) 3.9 10^3/uL (1.5-6.6); NEUTROPHILS % (AUTO) 62.8 %; PLT - PLATELET COUNT 174 10^3/uL (130-450); RED BLOOD COUNT 4.82 10^6/uL (4.70-6.10); RED CELL DISTRIBUTION WIDTH 12.3 % (12.0-15.0); WHITE BLOOD COUNT 6.2 x10^3/uL (4.8-10.8)
[2023-07-06 12:05] LABS: ALBUMIN 4.3 g/dL (3.2-5.5); ALBUMIN/GLOBULIN RATIO 1.9 (1.0-2.2); ALKALINE PHOSPHATASE 53 IU/L (42-121); ALT ALANINE AMINOTRANSFERASE 44 IU/L (10-60); AST ASPARTATE AMINOTRANSFERASE 26 IU/L (10-42); BILIRUBIN,TOTAL 0.9 mg/dL (0.2-1.0); BUN - BLOOD UREA NITROGEN 18 mg/dL (6-20); CALCIUM 9.5 mg/dL (8.5-10.3); CARBON DIOXIDE - CO2 30 mmol/L (21-32); CHLORIDE 105 mmol/L (101-111); CHOL/HDL RATIO 2.8 (<5.0); CHOLESTEROL 92 mg/dL; CREATININE 0.9 mg/dL (0.6-1.3); GFR - MDRD 87 (>89); GLUCOSE 117 mg/dL (74-104); HDL CHOLESTEROL 33 mg/dL; LDL CHOLESTEROL,CALCULATED 35 mg/dL; LDL/HDL RATIO 1.1 (<3.6); POTASSIUM 3.6 mmol/L (3.5-4.5); SODIUM 140 mmol/L (135-145); TOTAL PROTEIN 6.6 g/dL (6.4-8.9); TRIGLYCERIDES 121 mg/dL (48-352); VLDL CHOLESTEROL 24 mg/dL
[2023-07-06 12:18] LABS: THYROID STIMULATING HORMONE 1.38 uIU/mL (0.34-5.60)
[2023-07-06 12:24] LABS: FERRITIN 55.5 ng/mL (23.9-336.2)
[2023-07-06 12:58] LABS: ESTIMATED AVERAGE GLUCOSE 111 mg/dL (70-100); HEMOGLOBIN A1c% 5.5 % (4.27-6.07)
== END 2023-07-06 11:27 | disposition home or self-care (01) ==
LOC: LAB 11:26
PROVIDERS: ATTEND Family Medicine
DX: R73.9 Hyperglycemia, unspecified (principal); G47.33 Obstructive sleep apnea (adult) (pediatric); I10 Essential (primary) hypertension; D75.1 Secondary polycythemia; G70.9 Myoneural disorder, unspecified
CPT/HCPCS: 36415; 80053; 80061; 82728; 83036; 83721; 84443; 85025

== ENCOUNTER 2023-10-20 11:52 | Outpatient (CLI) | payer MEDICARE, MEDICAID ==
[2023-10-20 12:18] LABS: BASOPHILS % (AUTO) 0.5 %; EOSINOPHILS # (AUTO) 0.1 10^3/uL (0.0-0.7); EOSINOPHILS % (AUTO) 2.2 %; HGB - HEMOGLOBIN 16.5 g/dL (14.0-18.0); LYMPHOCYTES # (AUTO) 1.4 10^3/uL (1.5-3.5); LYMPHOCYTES % (AUTO) 25.8 %; MEAN CORPUSCULAR HEMOGLOBIN 33.3 pg (27.0-31.0); MEAN CORPUSCULAR HGB CONC 34.4 g/dL (32.0-36.0); MEAN CORPUSCULAR VOLUME 96.8 fL (80.0-94.0); MEAN PLATELET VOLUME 9.5 fL (7.4-11.4); MONOCYTES # (AUTO) 0.5 10^3/uL (0.0-1.0); NEUTROPHILS # (AUTO) 3.5 10^3/uL (1.5-6.6); NEUTROPHILS % (AUTO) 62.1 %; PLT - PLATELET COUNT 185 10^3/uL (130-450); RED BLOOD COUNT 4.96 10^6/uL (4.70-6.10); RED CELL DISTRIBUTION WIDTH 12.8 % (12.0-15.0); WHITE BLOOD COUNT 5.6 x10^3/uL (4.8-10.8)
[2023-10-20 12:31] LABS: ALBUMIN 4.3 g/dL (3.2-5.5); ALBUMIN/GLOBULIN RATIO 1.5 (1.0-2.2); BILIRUBIN,TOTAL 1.1 mg/dL (0.2-1.0); CALCIUM 9.9 mg/dL (8.5-10.3); CREATININE 0.8 mg/dL (0.6-1.3); POTASSIUM 4.2 mmol/L (3.5-4.5); TOTAL PROTEIN 7.2 g/dL (6.4-8.9)
[2023-10-20 12:46] LABS: THYROID STIMULATING HORMONE 1.81 uIU/mL (0.34-5.60)
== END 2023-10-20 11:53 | disposition home or self-care (01) ==
LOC: LAB 11:52
PROVIDERS: ATTEND Family Medicine
DX: I10 Essential (primary) hypertension (principal); G62.9 Polyneuropathy, unspecified; E26.89 Other hyperaldosteronism; K21.9 Gastro-esophageal reflux disease without esophagitis; I25.10 Atherosclerotic heart disease of native coronary artery without angina pectoris; F41.8 Other specified anxiety disorders; G47.33 Obstructive sleep apnea (adult) (pediatric); D75.1 Secondary polycythemia; E29.1 Testicular hypofunction
CPT/HCPCS: 36415; 80053; 84403; 84443; 85025

== ENCOUNTER 2023-11-19 15:15 | Outpatient (CLI) | payer MEDICARE ==
[2023-11-19 18:22] LABS: BASOPHILS % (AUTO) 0.5 %; EOSINOPHILS # (AUTO) 0.1 10^3/uL (0.0-0.7); HCT - HEMATOCRIT 43.1 % (42.0-52.0); HGB - HEMOGLOBIN 14.6 g/dL (14.0-18.0); LYMPHOCYTES # (AUTO) 1.2 10^3/uL (1.5-3.5); MEAN CORPUSCULAR HEMOGLOBIN 33.1 pg (27.0-31.0); MEAN CORPUSCULAR HGB CONC 33.9 g/dL (32.0-36.0); MEAN CORPUSCULAR VOLUME 97.7 fL (80.0-94.0); MEAN PLATELET VOLUME 10.1 fL (7.4-11.4); MONOCYTES # (AUTO) 0.6 10^3/uL (0.0-1.0); MONOCYTES % (AUTO) 9.5 %; NEUTROPHILS # (AUTO) 4.1 10^3/uL (1.5-6.6); NEUTROPHILS % (AUTO) 67.8 %; PLT - PLATELET COUNT 222 10^3/uL (130-450); RED BLOOD COUNT 4.41 10^6/uL (4.70-6.10); RED CELL DISTRIBUTION WIDTH 13.3 % (12.0-15.0)
[2023-11-19 18:38] LABS: ALBUMIN 4.5 g/dL (3.2-5.5); ALBUMIN/GLOBULIN RATIO 1.7 (1.0-2.2); BILIRUBIN,TOTAL 0.7 mg/dL (0.2-1.0); CALCIUM 10.1 mg/dL (8.5-10.3); CREATININE 0.8 mg/dL (0.6-1.3); POTASSIUM 3.8 mmol/L (3.5-4.5); TOTAL PROTEIN 7.2 g/dL (6.4-8.9)
== END 2023-11-19 15:30 | disposition home or self-care (01) ==
LOC: LAB.N 15:15
PROVIDERS: ATTEND Physician Assistant
DX: K92.1 Melena (principal)
CPT/HCPCS: 36415; 80053; 85025

== ENCOUNTER 2023-11-20 12:39 | Outpatient (CLI) | payer MEDICARE, MEDICAID ==
--- NOTE | 2023-11-20 13:22 | Sleep Patient Instructions ---
Sleep Center Visit Summary - Patient Visit Information Reason for Visit: 6-month follow-up - Patient Instructions Additional Instructions: You were here for follow up of CPAP therapy. You will be continued on CPAP therapy with pressure at 9-14 cmH2O. You should follow up with sleep care in 12 months. You may contact us sooner for any questions or concerns. - Clinic Information Contact: [facility] [address] [place] [address] [email or web address] T: [phone]
--- NOTE | 2023-11-20 13:28 | SLEEP CARE CONSULTATION ---
Information from patient questionnaire entered by Ana Plummer. I have reviewed and concur with the information entered by Ana Plummer. This document represents the service I personally performed and the decisions made by me, Orquidea Hinojosa ARNP. History of Present Illness Service Date and Time: 11/20/2023 1239 Previous diagnosis: Mild, Obstructive Sleep Apnea-Hypopnea Syndrome AHI: 14.7 (in 2021) Reason for follow up: six month (F/U) Equipment type: CPAP (RESMED Airsense 11; s/u 11/2022) Equipment obtained from: Other ([facility]; getting supplies) Mask style: Full face Mask brand: Resmed (F20) Backup mask available: Yes Last cushion change: 1.5 weeks ago Prior sleep studies: Yes Year and Where: most recent summer or fall 2020 [place], years before in [place] Type of Sleep Study: Home sleep study HPI additional information: BALA BETANCOURT was diagnosed to have mild, AHI 14.7, obstructive sleep apnea- hypopnea syndrome and returned today for CPAP therapy six month follow-up. Sleep Study - Results Type of Sleep Study: Home sleep study Prior sleep studies: Yes Year and Where: most recent summer or fall 2020 [place], years before in [place] CPAP Compliance Data - Data Reviewed with Patient Average duration of nightly device use: 7 HRS 47 MINS Compliance rate %: 96 (05/21/23-11/16/23; 172/180 days used) Current pressure setting (cmH2O): 9-14 Average residual AHI: 2.7 Central apnea: 0.1 Obstructive apnea: 0.8 Average large leak: 2.6 L/min Subjective Missed days of use due to: reports: mask issues Patient concerns: reports: nasal congestion, other (lung congestion/pain; headaches). denies: aerophagia, mask discomfort, air blowing in eyes, mask leak noise, condensation in mask/hose, dry mouth, nose, throat, epistaxis Observed to snore while using device: No Current pressure setting perceived as: comfortable On therapy, patient: reports: sleeping better, awakening more refreshed, being more awake and alert during the day, more rested overall. denies: drowsiness while driving Initial [place] Sleepiness Scale score: 5 (06/28/22) Current [place] Sleepiness Scale score: 9 (11/20/23) Allergies and Home Medications Known drug allergies: No Drug allergies reviewed: Yes Home medication list reviewed: Yes (no changes) Allergy and home medication list: Allergies No Known Drug Allergies Allergy (Verified 11/18/23 11:21) Review of Systems Review of systems same as previous: Yes (NO CHANGE) Physical Exam Vital signs obtained and entered by: ANA Carlson MA Blood Pressure: 139/82 (LEFT ARM) Cuff size: long Heart Rate: 86 O2 Saturation: 97 Height: 6 ft 3 in ([facility] PT) Weight: 279 lb 12.8 oz Weight change since last visit: 10 lb loss Body Mass Index: 34.9 BMI Classification: Obese Impression and Plan 1. Obstructive Sleep Apnea-Hypopnea Syndrome, mild, with good treatment compliance and good apnea control. On CPAP therapy, the patient has better sleep quality and is more rested overall. Patient said he was on vacation for a while and then about 2 or more weeks ago he started feeling some lung congestion, nasal congestion and even some lung pain when using his CPAP. It resolved after a few days of not using the CPAP. He called for assistance from his DME supplier who recommended that he change his filter. He was traveling and was waiting for supplies to be delivered. He said the filter was very dirty and he changed it. When he came home he changed the filter and used it for 1 night and had the same symptoms. He changed out his mask and tubing the next day but still had that feeling of congestion in his head and chest. He has not been usi ng his CPAP for the last week or so until this appointment so he could ask for further recommendations. I recommended that he run the air for a little bit on his machine and change the filter again. If it continues to have the same feeling I recommend that he call and have the machine serviced through his DME supplier. He may reach out to me if he needs further assistance. I also recommended that he change his filter more often, at least once a month. He voiced understanding and agreement with this plan. Patient's apnea severity and rationale for treatment to reduce apnea, improve sleep quality and reduce cardiovascular and cerebrovascular events was reviewed. I also reviewed the benefit of consistent device use of CPAP for hypertension. 2. Obesity, unspecified. Currently patients BMI is 34.9. Obesity increases the risk of apnea, CPAP pressure requirements and overall health risks especially cardiovascular and diabetes. Thus patient is advised to continue to try to lose weight. * Continue auto CPAP pressure at 9-14 cmH2O * Notify me if snoring with mask or feeling that the pressure is too much or too little * Attempt to lose weight * Call this office if any problems using CPAP * Return for follow up in 12 months, or sooner if concerns arise Counseling Topics: Spare mask, Weight loss health impact Follow up with Sleep Care in: 1 year Visit Type: In Office Time Spent with Patient (minutes): 25 Provider Statement: I spent 100% of the Face to Face Visit with the patient with greater than 50% spent counseling the patient and coordination of care.
[2023-11-20 13:31] VITALS: BP 139/82; O2SAT 97
== END 2023-11-20 12:40 | disposition home or self-care (01) ==
LOC: SC 12:39
PROVIDERS: ATTEND Nurse Practitioner Family
DX: G47.33 Obstructive sleep apnea (adult) (pediatric) (principal); E66.9 Obesity, unspecified; Z68.34 Body mass index [BMI] 34.0-34.9, adult
CPT/HCPCS: 99213; G0463; 99212

== ENCOUNTER 2023-12-24 12:58 | Outpatient (CLI) | payer MEDICARE ==
[2023-12-24 13:39] LABS: THYROID STIMULATING HORMONE 1.69 uIU/mL (0.34-5.60)
== END 2023-12-24 12:59 | disposition home or self-care (01) ==
LOC: LAB 12:58
PROVIDERS: ATTEND Nurse Practitioner Acute Care
DX: R00.2 Palpitations (principal)
CPT/HCPCS: 36415; 84439; 84443

== ENCOUNTER 2024-05-01 12:52 | Emergency (ER) | payer MEDICARE ==
--- NOTE | 2024-05-01 13:05 | ED Physician Documentation ---
History of Present Illness - Stated complaint Stated Complaint: GI, SENT BY Y - History obtained from History obtained from: Patient - History of Present Illness Timing: Prior to arrival - Additonal information Additional information: Patient is a 59-year-old male presenting to the emergency department with black stools that have been going on for about a week now. Patient recently about 4 weeks ago was diagnosed with esophageal cancer. He notes he had an EGD performed at that time as he was having difficulty swallowing and black stools then during the EGD he was noted to have a large mass in his esophagus that was biopsied with ultrasound 2 weeks ago. He notes during that time his black stools had resolved and he had persistent symptoms of difficulty swallowing. Patient denies being on any blood thinners. He notes black stools that are soft but no diarrhea no bright red blood in his stool. He denies any abdominal cramping. He has been on soft and liquid diet but his vomiting and feelings of stricture in his throat have progressively gotten worse. He notes prior to being here he ate some spaghetti noodles and threw them up shortly after as he felt they were not completely digesting. He denies any fevers or chills. No previous history of cancer. He follows with GI at [facility] and with oncology at [facility]. PD PAST MEDICAL HISTORY - Past Medical History Cardiovascular: Hypertension, High cholesterol Respiratory: None Neuro: Other Endocrine/Autoimmune: None GI: None : None HEENT: None Psych: None Musculoskeletal: None Derm: None - Past Surgical History Past Surgical History: Yes General: Colonoscopy HEENT: Tonsil/Adenoidectomy - Present Medications Home Medications: Ambulatory Orders Medication Instructions Recorded Confirmed Furosemide [Lasix] 20 mg PO BID 11/22/21 11/20/23 Gabapentin [Neurontin] 600 mg PO HS 11/22/21 11/20/23 Tamsulosin [Flomax] 0.8 mg PO HS 11/22/21 11/20/23 Valsartan 320 mg PO DAILY 11/22/21 11/20/23 Zolpidem [Ambien] 10 mg PO HS 11/22/21 11/20/23 cloNIDine 0.3 MG PATCH See Rx Instructions .ROUTE .COMPLEX 06/07/22 11/20/23 [[id number]] Aspirin EC [Ecotrin] 81 mg PO DAILY 09/08/22 11/20/23 Atorvastatin Calcium 40 mg PO HS 09/08/22 11/20/23 Cholecalciferol (Vitamin D3) See Rx Instructions .ROUTE .COMPLEX 09/08/22 11/20/23 [Vitamin D3] Fluticasone Propionate [Xhance] See Rx Instructions .ROUTE 09/08/22 11/20/23 .COMPLEX PRN Mecobalamin [B12 Active] 1,000 mcg PO DAILY 09/08/22 11/20/23 [place] 3,6/Dha/Alysia/Schizo/Mort 600 mg PO DAILY 09/08/22 11/20/23 [Enfamil Dha-Alysia 110 mg/ml Drop] Senna [Senokot] 17.4 mg PO DAILY PRN 09/08/22 11/20/23 Zinc Gluconate [Zinc] 50 mg PO DAILY 09/08/22 11/20/23 cloNIDine [Catapres] 0.1 mg PO BID PRN 09/08/22 11/20/23 clomiPHENE citrate [Clomid] See Rx Instructions .ROUTE .COMPLEX 09/08/22 11/20/23 Spironolactone [Aldactone] See Rx Instructions .ROUTE .COMPLEX 02/07/23 11/20/23 - Allergies Allergies/Adverse Reactions: Allergies Allergy/AdvReac Type Severity Reaction Status Date / Time No Known Drug Allergies Allergy Verified 05/01/24 13:03 - Social History Does the pt smoke?: No Smoking Status: Never smoker Does the pt drink ETOH?: No Does the pt have substance abuse?: No - Immunizations Immunizations are current?: Yes - POLST Patient has POLST: No PD ED PE NORMAL - Vitals Vital signs reviewed: Yes - General General: Alert and oriented X 3 - HEENT HEENT: Atraumatic - Neck Neck: Supple, no meningeal sign - Cardiac Cardiac: RRR, No murmur, No gallop, No rub - Respiratory Respiratory: No respiratory distress, Clear bilaterally - Abdomen Abdomen: Normal bowel sounds, Non tender, Non distended - Back Back: No CVA TTP - Derm Derm: Normal color, No rash - Extremities Extremities: No deformity - Neuro Neuro: Alert and oriented X 3 Results - Vitals Vitals: Vital Signs - 24 hr 05/01/24 05/01/24 05/01/24 12:58 13:15 15:02 Temperature 36.5 C Heart Rate 87 77 Respiratory 20 Rate Blood Pressure 149/85 H 139/75 H 127/68 O2 Saturation 95 98 Oxygen O2 Source Room air - Labs Labs: Microbiology 05/01/24 13:16 Occult Blood - Final Stool Laboratory Tests 05/01/24 05/01/24 05/01/24 13:27 13:27 13:27 WBC 5.2 RBC 2.99 L Hgb 9.1 L Hct 28.5 L MCV 95.3 H MCH 30.4 MCHC 31.9 L RDW 14.4 Plt Count 178 MPV 9.6 Neut # (Auto) 3.4 Lymph # (Auto) 1.1 L Phillips # (Auto) 0.5 Eos # (Auto) 0.1 Baso # (Auto) 0.0 Absolute Nucleated RBC 0.00 Nucleated RBC % 0.0 PT 13.3 H INR 1.2 Sodium 138 Potassium 3.7 Chloride 106 Carbon Dioxide 27 Anion Gap 5.0 L BUN 13 Creatinine 0.8 Estimated GFR (MDRD) 99 Glucose 145 H Calcium 9.3 Magnesium 1.9 Total Bilirubin 0.6 AST 23 ALT 30 Alkaline Phosphatase 43 Total Protein 5.9 L Albumin 3.7 Globulin 2.2 Albumin/Globulin Ratio 1.7 Lipase 28 05/01/24 16:25 WBC RBC Hgb 9.3 L Hct 29.0 L MCV MCH MCHC RDW Plt Count MPV Neut # (Auto) Lymph # (Auto) Phillips # (Auto) Eos # (Auto) Baso # (Auto) Absolute Nucleated RBC Nucleated RBC % PT INR Sodium Potassium Chloride Carbon Dioxide Anion Gap BUN Creatinine Estimated GFR (MDRD) Glucose Calcium Magnesium Total Bilirubin AST ALT Alkaline Phosphatase Total Protein Albumin Globulin Albumin/Globulin Ratio Lipase PD Medical Decision Making - ED course Complexity details: reviewed old records, reviewed results ED course: Patient is a 59-year-old male presenting to the emergency department with feelings of esophageal stricture and black stools. Patient was recently diagnosed with esophageal cancer he had EGD That was performed about 2 weeks ago and biopsy was obtained but patient has not received results on this and thus treatment has not been started. He is following with oncology and GI at [facility]. Vital stable on arrival patient is normotensive nontachycardic. Physical exam shows no abdominal tenderness guaiac test does show black stools and is a positive guaiac test in lab. Labs here in the emergency department show significant anemia previous hemoglobin was from October was 14.6 and repeat here in the emergency department was 9.1. Unsure of patient's baseline given recent cancer diagnosis. Patient has no significant leukocytosis INR appears stable otherwise he is not on any blood thinners. Discussed with patient's GI specialist Dr. Renner at [facility] and they recommend patient switch to Ensure and liquid diet at this time. He needs to follow-up on Saturday with GI specialist as he may require a PEG tube at this time. Discussed with hospitalist concern for significant drop in hemoglobin and possible upper GI bleed however she notes no EGD would be helpful at this time and nothing would be done until Saturday as patient appears stable. Discussed case with general surgeon here at 15[address] Dr. Colon discussed possible admission and watch hemoglobin overnight or patient can be discharged home take antiacids at home and follow-up with Leslie Renteria in outpatient setting. He notes at this point he does not think EGD is necessary as he notes esophageal cancer is most likely cause of bleeding and nothing he would cauterize at this time as he is not significantly anemic or significant bleeding as we do not know his baseline hemoglobin at this time. Discussed with hospitalist Dr. Merino as well shortly after and discussed case given positive guaiac test and drop in hemoglobin he may require admission and watch for any decrease in hemoglobin with transfusion over the weekend. If hemoglobin continues to drop he would most likely require EGD. Dr. Wisdom feels if patient can be have repeat hemoglobin done then he is most likely safe for discharge home if it remains stable, if it continues to drop here in emergency department then patient can be admitted. Repeat hemoglobin at 3-hour luke shows hemoglobin of 9.3. Patient is stable and is safe for discharge home at this time. Discussed with patient strict return precautions including symptomatic anemia with shortness of breath dizziness lightheadedness presyncopal symptoms. Additionally recommended strict follow-up with Leslie Renteria on Saturday with his GI specialist for reevaluation and possible PEG tube placement. He will remain on liquid diet and encouraged the use of Ensure at home to maintain weight. Patient agreeable with this plan. Departure - Departure Disposition: 01 Home, Self Care Clinical Impression: Anemia, Esophageal cancer, Blood in stool, Decreased appetite Condition: Fair Comments: You were seen here in the emergency department your hemoglobin does appear to be staying stable at this time but there is a significant decrease from your previous labs earlier in October. You do have blood in your stool which is concerning for a possible bleed from your esophagus from the cancer. You are to follow-up in [facility] with the GI physician they will get in contact with you and set up an appointment as he most likely will require a PEG tube did giv en your decreased appetite and difficulty swallowing at home. If you develop any symptomatic symptoms such as shortness of breath dizziness or lightheadedness these are signs of your hemoglobin decreasing which is concerning you should return to the emergency department with the symptoms.
[2024-05-01 13:33] LABS: BASOPHILS % (AUTO) 0.6 %; EOSINOPHILS # (AUTO) 0.1 10^3/uL (0.0-0.7); EOSINOPHILS % (AUTO) 1.7 %; HCT - HEMATOCRIT 28.5 % (42.0-52.0); HGB - HEMOGLOBIN 9.1 g/dL (14.0-18.0); LYMPHOCYTES # (AUTO) 1.1 10^3/uL (1.5-3.5); LYMPHOCYTES % (AUTO) 21.1 %; MEAN CORPUSCULAR HEMOGLOBIN 30.4 pg (27.0-31.0); MEAN CORPUSCULAR HGB CONC 31.9 g/dL (32.0-36.0); MEAN CORPUSCULAR VOLUME 95.3 fL (80.0-94.0); MEAN PLATELET VOLUME 9.6 fL (7.4-11.4); MONOCYTES # (AUTO) 0.5 10^3/uL (0.0-1.0); MONOCYTES % (AUTO) 10.2 %; NEUTROPHILS # (AUTO) 3.4 10^3/uL (1.5-6.6); PLT - PLATELET COUNT 178 10^3/uL (130-450); RED BLOOD COUNT 2.99 10^6/uL (4.70-6.10); RED CELL DISTRIBUTION WIDTH 14.4 % (12.0-15.0); WHITE BLOOD COUNT 5.2 x10^3/uL (4.8-10.8)
[2024-05-01 13:38] LABS: INR 1.2 (0.8-1.2); PT - PROTHROMBIN TIME 13.3 secs (9.9-12.6)
[2024-05-01 13:49] LABS: ALBUMIN 3.7 g/dL (3.2-5.5); ALBUMIN/GLOBULIN RATIO 1.7 (1.0-2.2); BILIRUBIN,TOTAL 0.6 mg/dL (0.2-1.0); CALCIUM 9.3 mg/dL (8.5-10.3); CREATININE 0.8 mg/dL (0.6-1.3); MAGNESIUM 1.9 mg/dL (1.7-2.3); POTASSIUM 3.7 mmol/L (3.5-4.5); TOTAL PROTEIN 5.9 g/dL (6.4-8.9)
[2024-05-01 16:32] LABS: HGB - HEMOGLOBIN 9.3 g/dL (14.0-18.0)
[2024-05-01 17:48] VITALS: BP 138/75; O2SAT 99
== END 2024-05-01 17:43 | disposition home or self-care (01) ==
LOC: ED 12:52
DX: D49.0 Neoplasm of unspecified behavior of digestive system (principal); D63.0 Anemia in neoplastic disease; K92.1 Melena; R63.0 Anorexia; I10 Essential (primary) hypertension; E78.00 Pure hypercholesterolemia, unspecified; Z79.899 Other long term (current) drug therapy; Z79.82 Long term (current) use of aspirin
CPT/HCPCS: 36415; 80053; 82272; 83690; 83735; 85014; 85018; 85025; 85610; 99283; 99284

== ENCOUNTER 2024-05-02 18:51 | Emergency (ER) | payer MEDICARE ==
[2024-05-02 19:04] VITALS: BP 152/84; O2SAT 100
[2024-05-02 19:45] LABS: HCT - HEMATOCRIT 27.7 % (42.0-52.0); HGB - HEMOGLOBIN 9.2 g/dL (14.0-18.0)
--- NOTE | 2024-05-02 20:00 | ED Physician Documentation ---
History of Present Illness - Stated complaint Stated Complaint: DIZZY - Chief complaint Chief Complaint: General - History obtained from History obtained from: Patient - Additonal information Additional information: 59-year-old male with history of recently diagnosed esophageal cancer presents for repeat evaluation. Seen yesterday for black stools. Told that he has new anemia. Based on ED note from yesterday both patient's oncologist and academic computing director were contacted, who stated that patient could follow-up in the clinic of the future. Patient states that he was told that if he gets ligh theaded or dizzy he should come back to have his hemoglobin rechecked. He states that he has intermittently been dizzy since his diagnosis with esophageal cancer and is not sure if it is new today or somewhat worse. He says that since it is the weekend he wanted to be on the safe side and came to the ER for a hemoglobin check. He states that he is still having black stools, but no gross blood Review of Systems Constitutional: denies: Fever, Chills GI: reports: Bloody / black stool. denies: Abdominal Pain, Nausea, Vomiting, Constipation, Diarrhea Musculoskeletal: denies: Neck pain, Back pain, Extremity pain Neurologic: reports: Other ("dizziness/lightheadedness"). denies: Generalized weakness, Focal weakness, Numbness PD PAST MEDICAL HISTORY - Past Medical History Past Medical History: Yes Cardiovascular: Hypertension, High cholesterol Respiratory: None Neuro: Other Endocrine/Autoimmune: None GI: None : None HEENT: None Psych: None Musculoskeletal: None Derm: None - Past Surgical History Past Surgical History: Yes General: Colonoscopy HEENT: Tonsil/Adenoidectomy - Present Medications Home Medications: Ambulatory Orders Medication Instructions Recorded Confirmed Furosemide [Lasix] 20 mg PO BID 11/22/21 11/20/23 Gabapentin [Neurontin] 600 mg PO HS 11/22/21 11/20/23 Tamsulosin [Flomax] 0.8 mg PO HS 11/22/21 11/20/23 Valsartan 320 mg PO DAILY 11/22/21 11/20/23 Zolpidem [Ambien] 10 mg PO HS 11/22/21 11/20/23 cloNIDine 0.3 MG PATCH See Rx Instructions .ROUTE .COMPLEX 06/07/22 11/20/23 [Semqcfhz-Spi-7] Aspirin EC [Ecotrin] 81 mg PO DAILY 09/08/22 11/20/23 Atorvastatin Calcium 40 mg PO HS 09/08/22 11/20/23 Cholecalciferol (Vitamin D3) See Rx Instructions .ROUTE .COMPLEX 09/08/22 11/20/23 [Vitamin D3] Fluticasone Propionate [Xhance] See Rx Instructions .ROUTE 09/08/22 11/20/23 .COMPLEX PRN Mecobalamin [B12 Active] 1,000 mcg PO DAILY 09/08/22 11/20/23 [place] 3,6/Dha/Alysia/Schizo/Mort 600 mg PO DAILY 09/08/22 11/20/23 [Enfamil Dha-Alysia 110 mg/ml Drop] Senna [Senokot] 17.4 mg PO DAILY PRN 09/08/22 11/20/23 Zinc Gluconate [Zinc] 50 mg PO DAILY 09/08/22 11/20/23 cloNIDine [Catapres] 0.1 mg PO BID PRN 09/08/22 11/20/23 clomiPHENE citrate [Clomid] See Rx Instructions .ROUTE .COMPLEX 09/08/22 11/20/23 Spironolactone [Aldactone] See Rx Instructions .ROUTE .COMPLEX 02/07/23 11/20/23 - Allergies Allergies/Adverse Reactions: Allergies Allergy/AdvReac Type Severity Reaction Status Date / Time No Known Drug Allergies Allergy Verified 05/02/24 18:55 - Social History Does the pt smoke?: No Smoking Status: Never smoker Does the pt drink ETOH?: No Does the pt have substance abuse?: No - Immunizations Immunizations are current?: Yes - POLST Patient has POLST: No PD ED PE NORMAL - Vitals Vital signs reviewed: Yes - General General: Alert and oriented X 3, No acute distress, Well developed/nourished - Cardiac Cardiac: RRR - Respiratory Respiratory: No respiratory distress, Clear bilaterally - Abdomen Abdomen: Soft, Non tender, Non distended - Derm Derm: Normal color, Warm and dry, No rash - Neuro Neuro: Alert and oriented X 3, back strip machine operator 2-12 intact, No motor deficit, Normal speech Results - Vitals Vitals: Vital Signs - 24 hr 05/02/24 05/02/24 18:55 19:31 Temperature 36.7 C Heart Rate 86 86 Respiratory 16 Rate Blood Pressure 152/84 H O2 Saturation 100 Oxygen O2 Source Room air - Labs Labs: Laboratory Tests 05/02/24 19:40 Hgb 9.2 L Hct 27.7 L PD Medical Decision Making - ED course Complexity details: reviewed old records, reviewed results, re-evaluated patient, considered differential, d/w patient ED course: Patient presenting stating he still feels intermittently dizzy and is concerned that his hemoglobin may have dropped further over the weekend. Denies shortness of breath, chest pain, passage of gross blood. Hemoglobin today 9.2, unchanged from prior. Patient relieved to know of his stable hemoglobin, I continue to recommend close follow-up with his specialist team. Recommended PPI initiation. Departure - Departure Disposition: Home, Self Care Clinical Impression: Anemia Condition: Stable Instructions: ED Anemia Type Not Specified Comments: Your hemoglobin today is 9.2, which is consistent with the values obtained yesterday. If you have not already started I recommend starting an antacid such as Protonix or Nexium. Follow-up with your oncologist and academic computing director as scheduled. If you continue to feel poorly or if you notice any new or worsening symptoms please feel free to come back to the ER for reevaluation. Forms: PCP List Discharge Date/Time: 05/02/24 20:05
== END 2024-05-02 20:05 | disposition home or self-care (01) ==
LOC: ED 18:51
DX: D49.0 Neoplasm of unspecified behavior of digestive system (principal); D63.0 Anemia in neoplastic disease; I10 Essential (primary) hypertension; E78.00 Pure hypercholesterolemia, unspecified; Z79.899 Other long term (current) drug therapy; Z79.82 Long term (current) use of aspirin
CPT/HCPCS: 36415; 80053; 85014; 85018; 85025; 99283

== ENCOUNTER 2024-06-10 07:17 | Emergency (ER) | payer MEDICARE ==
[2024-06-10 08:20] LABS: EOSINOPHILS % (AUTO) 0.8 %; HCT - HEMATOCRIT 32.6 % (42.0-52.0); HGB - HEMOGLOBIN 9.9 g/dL (14.0-18.0); LYMPHOCYTES % (AUTO) 22.1 %; MEAN CORPUSCULAR HGB CONC 30.4 g/dL (32.0-36.0); MEAN CORPUSCULAR VOLUME 82.3 fL (80.0-94.0); MONOCYTES % (AUTO) 57.4 %; NEUTROPHILS % (AUTO) 19.7 %; PLT - PLATELET COUNT 277 10^3/uL (130-450); RED BLOOD COUNT 3.96 10^6/uL (4.70-6.10); RED CELL DISTRIBUTION WIDTH 16.9 % (12.0-15.0)
--- NOTE | 2024-06-10 08:29 | XRAY Report ---
PROCEDURE: Chest 1V INDICATIONS: fever TECHNIQUE: One view of the chest was acquired. COMPARISON: 09/08/2022 FINDINGS: Surgical changes and devices: Interval placement of a right chest Port-A-Cath. Lungs and pleura: No pleural effusions or pneumothorax. Lungs are clear. Mediastinum: Mediastinal contours appear normal. Heart size is normal. Bones and chest wall: No suspicious bony lesions. Overlying soft tissues appear unremarkable. IMPRESSION: No acute cardiopulmonary process. Reviewed by: Anthony Isaacs MD on 06/10/2024 8:27 AM PDT Approved by: Anthony Isaacs MD on 06/10/2024 8:27 AM PDT Station ID: [id number]
[2024-06-10 08:32] LABS: SLIDE REVIEW? Indicated; WHITE BLOOD COUNT 1.2 x10^3/uL (4.8-10.8)
[2024-06-10 08:34] LABS: ALBUMIN 3.6 g/dL (3.2-5.5); ALBUMIN/GLOBULIN RATIO 1.6 (1.0-2.2); BILIRUBIN,TOTAL 1.3 mg/dL (0.2-1.0); CALCIUM 8.9 mg/dL (8.5-10.3); CREATININE 0.9 mg/dL (0.6-1.3); POTASSIUM 4.2 mmol/L (3.5-4.5); TOTAL PROTEIN 5.9 g/dL (6.4-8.9)
[2024-06-10 08:51] LABS: ABNORMAL LYMPHS % (MANUAL) 0 %
[2024-06-10 08:52] LABS: BAND NEUTROPHILS % (MANUAL) 1 %; LYMPHOCYTES # (MANUAL) 0.2 10^3/uL (1.5-3.5); LYMPHOCYTES % (MANUAL) 16 %; MONOCYTES # (MANUAL) 0.7 10^3/uL (0.0-1.0); NEUTROPHILS # (MANUAL) 0.3 10^3/uL (1.5-6.6); NUCLEATED RBC (MANUAL) 2 %
[2024-06-10 08:53] LABS: DIFFERENTIAL COMMENT MANUAL DIFFERENTIAL; PLATELET ESTIMATE, MANUAL NORMAL (130-450,000) (NORMAL); PLATELET MORPHOLOGY NORMAL APPEARANCE (NORMAL)
[2024-06-10 09:04] LABS: B. PARAPERTUSSIS- RESP PCR PAN NOT DETECTED; B. PERTUSSIS- RESP PCR PANEL NOT DETECTED; CORONAVIRUS 229E-RESP PCR NOT DETECTED; CORONAVIRUS HKU1-RESP PCR NOT DETECTED; CORONAVIRUS NL63-RESP PCR NOT DETECTED; CORONAVIRUS OC43-RESP PCR NOT DETECTED; HUMAN METAPNEUMOVIRUS NOT DETECTED; INFLUENZA A- RESP PCR PANEL NOT DETECTED; INFLUENZA B - RESP PCR PANEL NOT DETECTED; PARAINFLUENZA VIRUS 1 NOT DETECTED; PARAINFLUENZA VIRUS 2 NOT DETECTED; PARAINFLUENZA VIRUS 3 NOT DETECTED; PARAINFLUENZA VIRUS 4 NOT DETECTED; RHINOVIRUS/ENTEROVIRUS NOT DETECTED; RSV- RESP PCR PANEL NOT DETECTED; SARS-CoV-2 -RESP PCR PANEL NOT DETECTED
[2024-06-10 09:05] LABS: C. PNEUMONIAE- RESP PCR PANEL NOT DETECTED; M. PNEUMONIAE- RESP PCR PANEL NOT DETECTED
[2024-06-10] MEDS: SODIUM CHLORIDE 0.9% 1,000 ML IV STA ×3 (09:09→11:58)
[2024-06-10 13:39] LABS: BILIRUBIN,URINE NEGATIVE (NEGATIVE); GLUCOSE, URINE (UA) NEGATIVE (NEGATIVE); KETONES,URINE (UA) NEGATIVE (NEGATIVE); LEUKOCYTE ESTERASE, URINE NEGATIVE (NEGATIVE); NITRITE,URINE NEGATIVE (NEGATIVE); OCCULT BLOOD,URINE NEGATIVE (NEGATIVE); PH,URINE 6.5 PH (5.0-7.5); PROTEIN,URINE NEGATIVE (NEGATIVE); UROBILINOGEN,URINE 1 (NORMAL) E.U./dL (NORMAL)
[2024-06-10 13:40] LABS: CLARITY,URINE CLEAR (CLEAR)
--- NOTE | 2024-06-10 14:36 | ED Physician Documentation ---
History of Present Illness - Stated complaint Stated Complaint: FEVER, ACHES - Chief complaint Chief Complaint: General - History obtained from History obtained from: Patient - Additonal information Additional information: The patient comes to the emergency department chief complaint of aches, fevers, and chills, and just "not feeling well". He is newly being treated for esophageal cancer and just got his first chemotherapy about a week ago. He states that he has been achy since then but that early this morning, he woke up with a temperature of 102. He denies any specific infectious symptoms. No cough or shortness of breath. No nausea or vomiting. No diarrhea. No dysuria. No rash. He states that he feels as though his fever is broken now and is just sweaty. No other complaints at this time. No sick contacts that he knows of. PD PAST MEDICAL HISTORY - Past Medical History Past Medical History: Yes Cardiovascular: Hypertension, High cholesterol Respiratory: None Neuro: Other Endocrine/Autoimmune: None GI: None : None HEENT: None Psych: None Musculoskeletal: None Derm: None - Past Surgical History Past Surgical History: Yes General: Colonoscopy HEENT: Tonsil/Adenoidectomy - Present Medications Home Medications: Ambulatory Orders Medication Instructions Recorded Confirmed Furosemide [Lasix] 20 mg PO BID 11/22/21 06/10/24 Gabapentin [Neurontin] 600 mg PO HS 11/22/21 06/10/24 Tamsulosin [Flomax] 0.8 mg PO HS 11/22/21 06/10/24 Valsartan 320 mg PO DAILY 11/22/21 06/10/24 Zolpidem [Ambien] 10 mg PO HS 11/22/21 06/10/24 cloNIDine 0.3 MG PATCH See Rx Instructions .ROUTE .COMPLEX 06/07/22 06/10/24 [Nlilmqhv-Lfr-0] Aspirin EC [Ecotrin] 81 mg PO DAILY 09/08/22 06/10/24 Atorvastatin Calcium 40 mg PO HS 09/08/22 06/10/24 Mecobalamin [B12 Active] 1,000 mcg PO DAILY 09/08/22 06/10/24 [place] 3,6/Dha/Alysia/Schizo/Mort 600 mg PO DAILY 09/08/22 06/10/24 [Enfamil Dha-Alysia 110 mg/ml Drop] clomiPHENE citrate [Clomid] See Rx Instructions .ROUTE .COMPLEX 09/08/22 06/10/24 Spironolactone [Aldactone] See Rx Instructions .ROUTE .COMPLEX 02/07/23 06/10/24 levoFLOXacin [Levaquin] 500 mg PO QD #14 tablet 06/10/24 - Allergies Allergies/Adverse Reactions: Allergies Allergy/AdvReac Type Severity Reaction Status Date / Time No Known Drug Allergies Allergy Verified 06/10/24 07:27 - Social History Does the pt smoke?: No Smoking Status: Never smoker Does the pt drink ETOH?: No Does the pt have substance abuse?: No - Immunizations Immunizations are current?: Yes - POLST Patient has POLST: No PD ED PE NORMAL - Vitals Vital signs reviewed: Yes - General General: Alert and oriented X 3, No acute distress, Well developed/nourished - HEENT HEENT: Atraumatic, EOMI, Moist mucous membranes - Neck Neck: Supple, no meningeal sign - Cardiac Cardiac: RRR, No murmur - Respiratory Respiratory: No respiratory distress, Clear bilaterally - Abdomen Abdomen: Soft, Non tender, Non distended - Derm Derm: Normal color, No rash, Other (Warm and sweaty) - Extremities Extremities: No deformity, No edema, No calf tenderness / cord - Neuro Neuro: Alert and oriented X 3, Other (Grossly intact) - Psych Psych: Normal mood, Normal affect Results - Vitals Vitals: Vital Signs - 24 hr 06/10/24 06/10/24 06/10/24 07:22 09:21 10:34 Temperature 37.2 C Heart Rate 117 H 90 89 Respiratory 20 18 15 Rate Blood Pressure 99/60 134/85 H 113/59 L O2 Saturation 98 97 98 06/10/24 06/10/24 06/10/24 12:00 14:00 14:57 Temperature Heart Rate 82 87 100 Respiratory 18 18 20 Rate Blood Pressure 113/59 L 113/59 L 145/84 H O2 Saturation 100 94 99 Oxygen O2 Source Room air - Labs Labs: Laboratory Tests 06/10/24 06/10/24 06/10/24 08:02 08:02 08:02 WBC 1.2 L* RBC 3.96 L Hgb 9.9 L Hct 32.6 L MCV 82.3 MCH 25.0 L MCHC 30.4 L RDW 16.9 H Plt Count 277 MPV 10.0 Neut # (Auto) Not Reportable Lymph # (Auto) Not Reportable [place] # (Auto) Not Reportable Eos # (Auto) Not Reportable Baso # (Auto) Not Reportable Absolute Nucleated RBC Not Reportable Total Counted 100 Band Neuts % (Manual) 1 Abnorm Lymph % (Manual) 0 Nucleated RBC % Not Reportable Neutrophils # (Manual) 0.3 L* Lymphocytes # (Manual) 0.2 L Monocytes # (Manual) 0.7 Eosinophils # (Manual) 0.0 Basophils # (Manual) 0.0 Nucleated RBCs 2 Differential Comment MANUAL DIFFERENTIAL Manual Slide Review Indicated Platelet Estimate NORMAL (130-450,000) Platelet Morphology NORMAL APPEARANCE RBC Morph Micro Appear 1+ OVALOCYTES Sodium 131 L Potassium 4.2 Chloride 101 Carbon Dioxide 23 Anion Gap 7.0 BUN 22 H Creatinine 0.9 Estimated GFR (MDRD) 86 L Glucose 149 H Calcium 8.9 Total Bilirubin 1.3 H AST 13 ALT 21 Alkaline Phosphatase 47 Total Protein 5.9 L Albumin 3.6 Globulin 2.3 Albumin/Globulin Ratio 1.6 Lipase 25 Urine Color Urine Clarity Urine pH Ur Specific [place] Urine Protein Urine Glucose (UA) Urine Ketones Urine Occult Blood Urine Nitrite Urine Bilirubin Urine Urobilinogen Ur Leukocyte Esterase Ur Microscopic Review Urine Culture Comments Nasal Adenovirus (PCR) NOT DETECTED Nasal B. parapertussis DNA (PCR) NOT DETECTED Nasal Coronavir 229E PCR NOT DETECTED Nasal Coronavir HKU1 PCR NOT DETECTED Nasal Coronavir NL63 PCR NOT DETECTED Nasal Coronavir OC43 PCR NOT DETECTED Nasal Enterovir/Rhinovir PCR NOT DETECTED Nasal Influenza B PCR NOT DETECTED Nasal Influenza A PCR NOT DETECTED Nasal Parainfluen 1 PCR NOT DETECTED Nasal Parainfluen 2 PCR NOT DETECTED Nasal Parainfluen 3 PCR NOT DETECTED Nasal Parainfluen 4 PCR NOT DETECTED Nasal RSV (PCR) NOT DETECTED Nasal B.pertussis DNA PCR NOT DETECTED Nasal C.pneumoniae (PCR) NOT DETECTED [place] Human Metapneumo PCR NOT DETECTED Nasal M.pneumoniae (PCR) NOT DETECTED Nasal SARS-CoV-2 (PCR) NOT DETECTED 06/10/24 13:14 WBC RBC Hgb Hct MCV MCH MCHC RDW Plt Count MPV Neut # (Auto) Lymph # (Auto) [place] # (Auto) Eos # (Auto) Baso # (Auto) Absolute Nucleated RBC Total Counted Band Neuts % (Manual) Abnorm Lymph % (Manual) Nucleated RBC % Neutrophils # (Manual) Lymphocytes # (Manual) Monocytes # (Manual) Eosinophils # (Manual) Basophils # (Manual) Nucleated RBCs Differential Comment Manual Slide Review Platelet Estimate Platelet Morphology RBC Morph Micro Appear Sodium Potassium Chloride Carbon Dioxide Anion Gap BUN Creatinine Estimated GFR (MDRD) Glucose Calcium Total Bilirubin AST ALT Alkaline Phosphatase Total Protein Albumin Globulin Albumin/Globulin Ratio Lipase Urine Color YELLOW Urine Clarity CLEAR Urine pH 6.5 Ur Specific [place] 1.020 Urine Protein NEGATIVE Urine Glucose (UA) NEGATIVE Urine Ketones NEGATIVE Urine Occult Blood NEGATIVE Urine Nitrite NEGATIVE Urine Bilirubin NEGATIVE Urine Urobilinogen 1 (NORMAL) Ur Leukocyte Esterase NEGATIVE Ur Microscopic Review NOT INDICATED Urine Culture Comments NOT INDICATED Nasal Adenovirus (PCR) Nasal B. parapertussis DNA (PCR) Nasal Coronavir 229E PCR Nasal Coronavir HKU1 PCR Nasal Coronavir NL63 PCR Nasal Coronavir OC43 PCR Nasal Enterovir/Rhinovir PCR Nasal Influenza B PCR Nasal Influenza A PCR Nasal Parainfluen 1 PCR Nasal Parainfluen 2 PCR Nasal Parainfluen 3 PCR Nasal Parainfluen 4 PCR Nasal RSV (PCR) Nasal B.pertussis DNA PCR Nasal C.pneumoniae (PCR) [place] Human Metapneumo PCR Nasal M.pneumoniae (PCR) Nasal SARS-CoV-2 (PCR) - Rads (name of study) Chest x-ray Relevant Findings:: Final report received, See rad report (Negative) PD Medical Decision Making - ED course Complexity details: reviewed results, re-evaluated patient, considered differential, d/w patient ED course: The patient was worked up extensively for his fever in the setting of chemotherapy, with labs, which showed neutropenia but otherwise unremarkable; chest x-ray, which was unremarkable in appearance, urinalysis, which was also negative. Respiratory PCR panel was also negative. The patient was feeling better after fluid hydration with 2 L of 0.9 normal saline. I did have Dr. Sandra hein, paged to touch base about the patient's neutropenia and fever in the setting of chemotherapy. Dr. Miramontes did state that the patient could either stay in the hospital or go home. Since he is hemodynamically stable, he looks fairly good, and his workup is unremarkable other than the neutropenia, he is able to do either, just depending on his preference. He has recommended that the patient have a weeklong course of Levaquin preventatively. I have discussed these things with the patient who states he prefers to go home rather than stay. We do a blood cultures pending on him and he will be notified at home if he is positive. He has a chemotherapy appointment coming up in about 5 days, at which time he will also see Dr. Miramontes. We have discussed having a low threshold for return to the emergency department. Departure - Departure Disposition: Home, Self Care Clinical Impression: Neutropenic fever Condition: Stable Instructions: ED Fever Unconf Cause Prescriptions: levoFLOXacin [Levaquin] 500 mg PO QD #14 tablet Comments: Your white blood cell count is quite low which is not surprising, given the chemotherapy you are on. However, the rest of your labs look good, as do your urinalysis, chest x-ray, and viral panel. You do have blood cultures pending and I have discussed your case with Dr. Miramontes, who would like you started on some preventative antibiotics. He will have you take these for the next week. If you are feeling better or at least not getting worse, you may plan to follow- up For your chemotherapy next Saturday. Dr. Miramontes will see you at that time. However, if you are worsening at any time before then, or if you develop recurrent fevers, you should come back and see us again. We will call you if you have any positive findings on your blood cultures. The prescription for your antibiotics has been electronically transmitted to the [facility] pharmacy here in [place]. You have been given your first dose today already, so you may take your next dose tomorrow. Forms: PCP List
[2024-06-10] MEDS: levoFLOXacin 250 MG TABLET PO STA (14:52)
[2024-06-10 15:07] VITALS: BP 145/84; O2SAT 99
== END 2024-06-10 15:12 | disposition home or self-care (01) ==
LOC: ED 07:17
DX: D70.9 Neutropenia, unspecified (principal); R50.81 Fever presenting with conditions classified elsewhere; I10 Essential (primary) hypertension; E78.00 Pure hypercholesterolemia, unspecified; C15.9 Malignant neoplasm of esophagus, unspecified; Z79.60 Long term (current) use of unspecified immunomodulators and immunosuppressants; Z79.899 Other long term (current) drug therapy
CPT/HCPCS: 36415; 71045; 80053; 81003; 83690; 85025; 87040; 87633; 99284; A9270; 81001; 87086

== ENCOUNTER 2024-06-26 19:39 | Inpatient (IN) ==
--- NOTE | 2024-06-26 20:09 | ED Physician Documentation ---
PD HPI GI BLEED Stated complaint Stated Complaint: WEAKNESS Chief complaint Chief Complaint: Neuro History obtained from History obtained from: Patient and Family History of Present Illness Timing - details: Abrupt onset (onset after EGD with stomach biopsies 3 days ago. noted melena next morning. ) and Still present (but has not had stool output here in the ED as yet. ) Associated symptoms: Black/tarry stool and Loss of appetite; No Vomiting, Abdominal pain or Near syncope / syncope Contributing factors: Other (stomach cancer with EGD/biopsies 3 days ago. Has had this 2 prior times, with biopsies and brief bleeding 1-2 days.) Similar symptoms before: Diagnosis (gastric/tumor bleeding with biopsies in the past. ) Recently seen: Clinic (sees Oncology with chemo, due for treatment this coming week. ), Surgery (EGD at [facility] 3 days ago outpatient.) and Other (had blood count yesterday with Hgb 8, and outpt through oncologist today is 6.5.) Review of Systems Constitutional Reports: Fatigue; Denies: Fever Cardiovascular Denies: chest pain, palpitations or shortness of breath with exertion Respiratory Denies: Shortness of breath, Cough or Sputum production Gastrointestinal Reports: Nausea; Denies: Vomiting Endocrine Reports: Fatigue Exam Constitutional normal general appearance HENMT normocephalic Chest palpation of chest normal Respiratory breath sounds equal bilaterally and normal respiratory effort Cardiovascular normal heart rate noted and regular rhythm noted Gastrointestinal abdomen soft to palpation and nontender to palpation (mildly tender epigastric area) Extremities no tenderness Results Vitals Vitals: Vital Signs - 24 hr 06/26/24 19:45 06/26/24 22:15 06/26/24 22:35 Temperature 36.0 C L 36.8 C 37 C Temperature Source Tympanic Temporal Artery Scan Temporal Artery Scan Pulse Rate 114 H Pulse Rate [Monitoring electrodes] 97 H 97 H Respiratory Rate 18 18 18 Blood Pressure 146/85 H Blood Pressure [Left Brachial artery] 138/76 H 138/70 H O2 Saturation 100 98 99 O2 Source Room air Room air Room air Sedation scale 0-Fully awake 0-Fully awake Pain Intensity 0 0 0 Oxygen O2 Source Room air Labs Labs: Laboratory Tests 06/26/24 06/26/24 18:48 20:59 WBC 13.4 H RBC 2.32 L Hgb 5.6 L* Hct 19.3 L* MCV 83.2 MCH 24.1 L MCHC 29.0 L RDW 20.5 H Plt Count 159 MPV 9.4 Sodium 138 Potassium 3.5 Chloride 106 Carbon Dioxide 25 Anion Gap 7.0 BUN 34 H Creatinine 0.7 Estimated GFR (MDRD) 115 Glucose 178 H Calcium 8.0 L Magnesium 1.7 Total Bilirubin 0.3 AST 11 ALT 16 Alkaline Phosphatase 80 Total Protein 4.2 L Albumin 2.7 L Globulin 1.5 L Albumin/Globulin Ratio 1.8 Lipase 37 Blood Type O POSITIVE Blood Type Recheck O POSITIVE Antibody Screen NEGATIVE Crossmatch IS Only See Detail PD Medical Decision Making ED course Complexity details: reviewed old records, considered differential (seems upper GI bleeding from presumed biopsy site of stomach cancer. Blood count has dropped promptly enough to suggest reasonable amount of ongoing bleeding. Vitals are good. ) and d/w labor relations consultant (Dr. Mckeon, general surgery, who is comfortable with doin EGD on this patient if consulted by the hospitalist. Suggests transfusion and seeing if stops on own. ) Reviewed Lab Results: Blood count has shown a considerable drop in the short-term suggesting reasonable ongoing bleeding. ED course: His blood count is low and is actually even lower drawn here than it was this afternoon and lower than yesterday before that. Presume transfusion and at this point I would go with 2 units of blood given the ongoing loss and keep I had at least 1 unit in the lab. He is given pantoprazole though it likely is not a stomach acid issue per se more likely from the biopsy sites rather than a primary ulcer or gastritis. Still the acid reducing makes sense. I also gave a dose of tranexamic acid. This had equivocal results on a study done for GI bleeding but no harm done as I recall from the study. I did talk with the general surgery who is comfortable with scoping the patient here if need be. The patient would prefer not transferring if did not need to. His oncologist is out of [facility]. The procedure was done at [facility] as that was the available cone cleaner. The patient's vital signs are stable. He is not really had any stool output here so it may be slowing down. We were able to start the blood transfusion while he was still in the ER prior to my talking with the hospitalist. Hospitalist did write orders for the patient to be admitted and ongoing care. [facility] Medical History Medical History (Updated 10/05/24 @ 01:58 by Asif De León, DO) Esophageal cancer Social History Social History Smoking Status: Never smoker Do you vape?: No Patient requests smoking cessation consult: No Initiate information on smoking cessation: No Relationship: Level: Independent Home Mobility Equipment: Cane Do you feel safe in your home environment?: Yes Suffered physical, verbal, emotional, or financial abuse?: No History of Abuse: No POLST Patient has POLST: No Discharge Plan Discharge Patient Disposition: [facility] DC/Xfer Condition: Stable Clinical Impression: Acute upper gastrointestinal bleeding, Cancer of stomach Anemia Qualifiers: Anemia type: unspecified type Qualified Code(s): D64.9 - Anemia, unspecified
[2024-06-26] MEDS ORDERED: TRANEXAMIC ACID 1,000 MG/10 ML VIAL ONE (21:03)
[2024-06-26] MEDS: PANTOPRAZOLE 40 MG VIAL IVP STA (21:06)
[2024-06-26] MEDS: TRANEXAMIC ACID 1,000 MG in SODIUM CHLORIDE 0.9% 100ML 100 ML IV STA (21:10)
[2024-06-26 21:13] LABS: MEAN CORPUSCULAR HEMOGLOBIN 24.1 pg (27.0-31.0); MEAN CORPUSCULAR VOLUME 83.2 fL (80.0-94.0); MEAN PLATELET VOLUME 9.4 fL (7.4-11.4); RED BLOOD COUNT 2.32 10^6/uL (4.70-6.10); RED CELL DISTRIBUTION WIDTH 20.5 % (12.0-15.0); WHITE BLOOD COUNT 13.4 x10^3/uL (4.8-10.8)
[2024-06-26 21:15] LABS: HGB - HEMOGLOBIN 5.6 g/dL (14.0-18.0)
[2024-06-26 21:16] LABS: HCT - HEMATOCRIT 19.3 % (42.0-52.0)
[2024-06-26 21:31] LABS: MAGNESIUM 1.7 mg/dL (1.7-2.3)
[2024-06-26 21:37] LABS: ALBUMIN 2.7 g/dL (3.2-5.5); ALBUMIN/GLOBULIN RATIO 1.8 (1.0-2.2); BILIRUBIN,TOTAL 0.3 mg/dL (0.2-1.0); CREATININE 0.7 mg/dL (0.6-1.3); POTASSIUM 3.5 mmol/L (3.5-4.5); TOTAL PROTEIN 4.2 g/dL (6.4-8.9)
[2024-06-26] MEDS ORDERED: ONDANSETRON 4 MG/2 ML VIAL IVP PRN (23:40)
[2024-06-26] MEDS ORDERED: hydrALAZINE INJ 20 MG/ML VIAL IVP PRN (23:44)
[2024-06-26] MEDS ORDERED: CLONIDINE SCH (23:45)
--- NOTE | 2024-06-27 01:40 | HISTORY & PHYSICAL EXAMINATION ---
Chief Complaint Chief Complaint Chief Complaint: melena History of Present Illness Admitted From Admitted From:: ED History Obtained From Records Reviewed: EMR History obtained from: ED and Patient Exam Limitations: Tele Medicine History of Present Illness HPI Comment/Other: 59M c esophageal and gastric cancer on chemo s/p gtube p/w melena after recent EGD c bx. Patient reports EGD this past Saturday morning and subsequently noting melena in his stool by later that night. Patient reports no pain. No fever. No chills. No trauma. No new meds. He reports prior similar melena after EGD c bx. Prior episodes the bleed resolved spontaneously. This time however, patient noted persistent melena at home. He reports dizziness and weakness. Patient is not on anticoagulation. He is not taking NSAIDs. He stopped his ASA 2/2 melena. He decided to come into the ED yesterday thinking he was dry. He was discharged and was called back due to hgb/hct 03/11. Here in the ED, patient's hgb/ hct was 5.6/19.3. Paitent is typed and crossed for 2 units in the ED. ED spoke with oncall general surgery who can offer consultation if needed. ED reached out to Hospital Medicine for assistance with further medical management. [facility] Medical History Medical History (Updated 06/27/24 @ 01:58 by Asif De León DO) Esophageal cancer Social History Social History Smoking Status: Never smoker Do you vape?: No Patient requests smoking cessation consult: No Initiate information on smoking cessation: No Relationship: Level: Independent Home Mobility Equipment: Cane Do you feel safe in your home environment?: Yes Suffered physical, verbal, emotional, or financial abuse?: No History of Abuse: No POLST Patient has POLST: No Meds/Allgy Home Medications Ambulatory Orders Medication Instructions Recorded Confirmed gabapentin 300 mg capsule 600 mg PO HS 11/22/21 06/25/24 tamsulosin 0.4 mg capsule 0.8 mg PO HS 11/22/21 06/25/24 valsartan 320 mg tablet 320 mg PO DAILY 11/22/21 06/25/24 zolpidem 5 mg tablet 10 mg PO HS 11/22/21 06/25/24 clonidine 0.3 mg/24 hr weekly See Rx Instructions .Route .COMPLEX 06/07/22 06/25/24 transdermal patch aspirin 81 mg tablet,delayed 81 mg PO DAILY 09/08/22 06/25/24 release atorvastatin 40 mg tablet 40 mg PO HS 09/08/22 06/25/24 clomiphene citrate 50 mg tablet See Rx Instructions .Route .COMPLEX 09/08/22 06/25/24 (Clomid) mecobalamin (vitamin B12) 1,000 1,000 mcg PO DAILY 09/08/22 06/25/24 mcg chewable tablet (B12 Active) omega 3,0-byp-jst-Schizochytr-Mort 600 mg PO DAILY 09/08/22 06/25/24 110 mg (55 mg-55 mg)/mL oral drops (Enfamil DHA-in-Maame) spironolactone 25 mg tablet See Rx Instructions .Route .COMPLEX 02/07/23 06/25/24 (Aldactone) dexamethasone 4 mg tablet 4 mg PO PRN Chemotherapy 06/25/24 06/25/24 ondansetron 8 mg disintegrating 8 mg PO PRN PRN nausea and vomiting 06/25/24 06/25/24 tablet prochlorperazine maleate 10 mg 10 mg PO PRN nausea and vomiting 06/25/24 tablet Allergies Allergies Allergy/AdvReac Type Severity Reaction Status Date / Time No Known Drug Allergies Allergy Verified 06/25/24 18:29 Conclusion/Plan Problem List (1) Upper GI bleed: Plan: -likley related to recent gastric bx + underlying gastric and esophageal cancers -transfusion 2 units. patient accepts blood. understand risk/benefit. keep hgb>7 -monitor hgb/hct q 6 hours - (2) Anemia: Plan: -2/2 GI bleed. follouwp anemia stds and replace as needed Qualifiers: Anemia type: unspecified type Qualified Code(s): D64.9 - Anemia, unspecified (3) HTN (hypertension): Plan: -managed. restart home clonidine patch to prevent rebound hypertension -hold Losartan and Spironolactone until GI bleed better resolved. -monitor blood pressure with repeat vital checks (4) Cancer of stomach: Plan: -concurrent esophageal cancer as well -managed by outpatient oncology -stable. defer to followup with outpatient oncology -npo. Positive G tube Lab Results Lab results reviewed: Yes 06/26/24 20:59 06/26/24 20:59 Diagnostic Imaging Results Diagnostic Imaging Results: positive Final report reviewed Core Measures Anticipated LOS I expect patient to be DC'd or transferred within 96 hours.: Yes Issues Hospital Issues and Management Plan: The patient consented to receive this telemedicine service, which I performed via live two-way audiovisual equipment. The patient is at [facility] and I am physically in [facility]. A nurse assisted me in the visit. Full code Mother SCDs Inpatient [facility] DO Internal Medicine [employer] Tele Draw Off Worker DVT/VTE - Prophylaxis VTE/DVT Device ordered at admit?: Yes Telemedicine Consult Details Provider Location & Consult Time Telemedicine consultation conducted via videoconferencing?: Yes List names and roles of persons who participated in consult:: ED and Patient Telemedicine provider location:: [facility] Time Telemedicine consult began:: 23:30 Time Telemedicine consult completed:: 00:30 Exam Constitutional pale. HENMT normocephalic and head/scalp atraumatic Eyes conjunctivae normal Neck/C-Spine trachea midline Chest inspection of chest normal Respiratory no use of accessory muscles Genitourinary G tube Extremities normal to inspection Neurology speech normal Psychiatry mental status grossly normal Skin skin color normal
[2024-06-27] MEDS: PANTOPRAZOLE 80 MG in SODIUM CHLORIDE 0.9% 100ML 100 ML IV STA (02:08)
[2024-06-27] MEDS: SODIUM CHLORIDE FLUSH 0.9% 10 ML SYRINGE IVP SCH (02:09)
[2024-06-27] MEDS: cefTRIAXone 2 GM in SODIUM CHLORIDE 0.9% MINIBAG 100 ML IV SCH (02:13)
[2024-06-27 05:04] VITALS: O2SAT 96
[2024-06-27 05:44] LABS: HCT - HEMATOCRIT 23.4 % (42.0-52.0); MEAN CORPUSCULAR HEMOGLOBIN 25.2 pg (27.0-31.0); MEAN CORPUSCULAR HGB CONC 29.9 g/dL (32.0-36.0); MEAN CORPUSCULAR VOLUME 84.2 fL (80.0-94.0); MEAN PLATELET VOLUME 9.7 fL (7.4-11.4); RED BLOOD COUNT 2.78 10^6/uL (4.70-6.10); RED CELL DISTRIBUTION WIDTH 19.4 % (12.0-15.0); WHITE BLOOD COUNT 12.6 x10^3/uL (4.8-10.8)
[2024-06-27 05:49] LABS: INR 1.1 (0.8-1.2); PT - PROTHROMBIN TIME 12.4 secs (9.9-12.6)
[2024-06-27 05:58] LABS: CREATININE 0.7 mg/dL (0.6-1.3); PHOSPHORUS 2.5 mg/dL (2.5-5.0); POTASSIUM 3.6 mmol/L (3.5-4.5)
[2024-06-27] MEDS: GABAPENTIN 300 MG CAPSULE GT ONE (08:21)
[2024-06-27] MEDS: cloNIDine 0.1 MG PATCH TOP SCH (08:21)
[2024-06-27] MEDS: ACETAMINOPHEN 325 MG TABLET PO PRN (08:34)
--- NOTE | 2024-06-27 09:25 | PROVIDER PROGRESS NOTE ---
Subjective Subjective Subjective: Patient is a 59-year-old male with a history of recently diagnosed esophageal cancer, possible gastric cancer as well who presents after dark stools. He stated that for approximately 2 days he has had tarry dark stools. He denies any jerzy blood in stool. He had a recent EGD done on Saturday, 06/24, 3 days ago. This time, they took multiple biopsies. He has had 2 EGDs done in the past, he states that after each one of them he has a GI bleed. He feels fatigued, lightheaded, dizzy. He eats via G-tube, he states he has been doing his usual feeds. He denies any fevers, chills. Current Medications Current Medications Current Medications: Current Medications Generic Name Dose Route Start Last Admin Trade Name Freq PRN Reason Stop Dose Admin Acetaminophen 650 mg 06/27/24 00:31 06/27/24 08:34 Acetaminophen 325 Mg Tablet PO 650 mg Q4HR PRN Administration Pain or Fever > 38C (100.4F) Clonidine HCl 1 patch 06/27/24 09:00 06/27/24 08:21 Clonidine 0.1 Mg Patch TOP 1 patch Q7D CORY Administration Gabapentin 600 mg 06/27/24 21:00 Gabapentin 300 Mg Capsule GT HS CORY Hydralazine HCl 10 mg 06/26/24 23:44 Hydralazine Inj 20 Mg/Ml Vial IVP Q6H PRN prn SBP >180 Pantoprazole Sodium 80 mg/ 100 mls @ 10 mls/hr 06/26/24 23:47 06/27/24 02:08 Sodium Chloride IV 06/27/24 09:46 10 mls/hr .Q10H STA Administration Ondansetron HCl 4 mg 06/26/24 23:40 Ondansetron 4 Mg/2 Ml Vial IVP Q6H PRN nausea Sodium Chloride 10 ml 06/27/24 01:00 06/27/24 08:22 Sodium Chloride Flush 0.9% 10 Ml Syringe IVP 10 ml 0100,0900,1700 CORY Administration Tamsulosin HCl 0.8 mg 06/27/24 21:00 Tamsulosin 0.4 Mg Capsule GT HS CORY Objective Vital Signs/Intake & Output Reviewed Vital Signs: Yes Vital Signs: Vital Signs x48h Temp Pulse Pulse Resp BP Pulse Ox 06/27/24 07:44 98.6 F 96 H 16 146/77 H 96 06/27/24 05:00 98.6 F 100 H 15 146/75 H 96 06/27/24 02:09 98.4 F 100 H 16 135/70 H 06/27/24 02:02 98.8 F 102 H 16 154/80 H 06/27/24 01:57 98.8 F 107 H 16 154/80 H Intake & Output: Intake & Output 06/25/24 06/26/24 06/27/24 06/28/24 05:59 05:59 05:59 05:59 Intake Total 1230 / 1230 Balance 1230 / 1230 Weight (kg) 126 kg 126 kg Objective General Appearance: positive No acute distress Eyes Bilateral: positive Normal inspection, PERRL and Conjunctivae nml ENT: positive ENT inspection nml and Dry mucous membranes Neck: positive Nml inspection, Thyroid nml and No JVD Respiratory: positive Chest non-tender, No respiratory distress and Breath sounds nml Cardiovascular: positive Regular rate & rhythm and No murmur Abdomen: positive Non-tender, No organomegaly, Nml bowel sounds, No distention and Other (G tube in place; no erythema or drainage around site) Skin: positive No rash, Warm and Pallor Neurologic/Psychiatric: positive Oriented x3 and Mood/affect nml Lab Results 06/27/24 05:30 06/27/24 05:30 Other Labs: Lab Results x24hrs 06/27/24 06/26/24 06/26/24 Range/Units 05:30 20:59 18:48 WBC 12.6 H 13.4 H (4.8-10.8) x10^3/uL RBC 2.78 L 2.32 L (4.70-6.10) 10^6/uL Hgb 7.0 L* 5.6 L* (14.0-18.0) g/dL Hct 23.4 L 19.3 L* (42.0-52.0) % MCV 84.2 83.2 (80.0-94.0) fL MCH 25.2 L 24.1 L (27.0-31.0) pg MCHC 29.9 L 29.0 L (32.0-36.0) g/dL RDW 19.4 H 20.5 H (12.0-15.0) % Plt Count 161 159 (130-450) 10^3/uL MPV 9.7 9.4 (7.4-11.4) fL PT 12.4 (9.9-12.6) secs INR 1.1 (0.8-1.2) Sodium 140 138 (135-145) mmol/L Potassium 3.6 3.5 (3.5-4.5) mmol/L Chloride 110 106 (101-111) mmol/L Carbon Dioxide 24 25 (21-32) mmol/L Anion Gap 6.0 7.0 (6-13) BUN 27 H 34 H (6-20) mg/dL Creatinine 0.7 0.7 (0.6-1.3) mg/dL Estimated GFR (MDRD) 115 115 (>89) Glucose 146 H 178 H (74-104) mg/dL Calcium 8.0 L 8.0 L (8.5-10.3) mg/dL Phosphorus 2.5 (2.5-5.0) mg/dL Magnesium 1.7 (1.7-2.3) mg/dL Total Bilirubin 0.3 (0.2-1.0) mg/dL AST 11 (10-42) IU/L ALT 16 (10-60) IU/L Alkaline Phosphatase 80 (42-121) IU/L Total Protein 4.2 L (6.4-8.9) g/dL Albumin 2.7 L (3.2-5.5) g/dL Globulin 1.5 L (2.1-4.2) g/dL Albumin/Globulin Ratio 1.8 (1.0-2.2) Lipase 37 (11-82) U/L Blood Type O POSITIVE Blood Type Recheck O POSITIVE Antibody Screen NEGATIVE Crossmatch IS Only See Detail Assessment/Plan Problem List (1) Upper GI bleed: Impression: Patient with recent scope on 06/24 with multiple biopsies done. Presents with 2 to 3 days of melena, dizziness, lightheadedness. Hemoglobin 5.6 on admission, received 2 units packed red blood cells, now 7. Continue to trend. Continue aggressive IV fluid rehydration with LR at 125 cc an hour. TXA given in emergency room, discontinue at this time. Continue Protonix drip. Likely change to Protonix 40 mg twice daily. General Surgery consulted in case of worsening melena and hemoglobin, need for rescope and possible cauterization of active bleed. Strict n.p.o. at this time to allow for bowel rest. Hold aspirin at this time - no cardiac stents, on it for primary prevention. (2) Anemia: Impression: See above. Qualifiers: Anemia type: unspecified type Qualified Code(s): D64.9 - Anemia, unspecified (3) HTN (hypertension): Impression: Continue clonidine to avoid rebound hypertension. Hold spironolactone, hold valsartan, hold tamsulosin at this time. (4) Cancer of stomach: Impression: Follows with an oncologist out in [facility]. Has a follow-up appointment with them to start chemotherapy on 06/29. (5) Hyperlipemia: Impression: Continue statin once patient is able to eat.
[2024-06-27] MEDS: LACTATED RINGERS 1,000 ML IV SCH (09:50)
--- NOTE | 2024-06-27 10:49 | PHARMACY PROGRESS NOTE ---
Best Possible Medication History Admit Date and Time: 06/26/24 [id number] [facility] Statement: Per [employer] records and Pt interview As the person ultimately responsible for medication therapy, providers are able to order a medication from an existing home medication list in [facility] via the "Reconcile Routine" prior to Confirmation of that medication by operations support representative. Such practice is discouraged except when the physician, in their clinical judgment, deems that a medical need exists for a medication without regard to previous use.
[2024-06-27] MEDS ORDERED: MAG HYDROX/AL HYDROX/SIMETH 30 ML UDC PO PRN (11:30)
--- NOTE | 2024-06-27 11:43 | Discharge Summary ---
"Discharge Summary Admit Date: 06/27/24 Discharge Date: 06/27/24 Discharging Provider: Dr. Greene Primary Care Provider: Ernesto Gill MD Code Status: Attempt Resuscitation DIAGNOSES Admission Diagnoses: Upper GI bleed Anemia Hypertension Cancer of stomach Discharge Diagnoses with Status of Each Condition: Upper GI bleedpatient with recent scope on 06/24 with multiple biopsies done. Now presents with melena and hemoglobin of 5.6. Received 2 units of blood, now 7.1. No more episodes of melena. Surgery spoken withno plans for EGD at this time. Advised to hold aspirin indefinitely. Anemiasee above. Hypertensioncontinue clonidine patch avoid rebound hypertension. Hold spironolactone, start valsartan tomorrow, hold tamsulosin. Esophageal cancer, cancer of stomachongoing care with oncologist in [facility]. Has follow-up appointment with them on Saturday. Advised to follow-up upon hemoglobin hematocrit then. Hyperlipidemiacontinue statin, stable. HPI History of Present Illness: Per Dr. De León: 59M c esophageal and gastric cancer on chemo s/p gtube p/w melena after recent EGD c bx. Patient reports EGD this past Saturday morning and subsequently noting melena in his stool by later that night. Patient reports no pain. No fever. No chills. No trauma. No new meds. He reports prior similar melena after EGD c bx. Prior episodes the bleed resolved spontaneously. This time however, patient noted persistent melena at home. He reports dizziness and weakness. Patient is not on anticoagulation. He is not taking NSAIDs. He stopped his ASA 2/2 melena. He decided to come into the ED yesterday thinking he was dry. He was discharged and was called back due to hgb/hct 03/11. Here in the ED, patient's hgb/ hct was 5.6/19.3. Paitent is typed and crossed for 2 units in the ED. ED spoke with oncall general surgery who can offer consultation if needed. ED reached out to Hospital Medicine for assistance with further medical management. CONSULTS | PROCEDURES Consultations: General surgery Procedures: None HOSPITAL COURSE Hospital Course: Patient is a 59-year-old male with a history of recently diagnosed esophageal cancer and gastric cancer who presents with dark stools, fatigue. He had a EGD done on Saturday, approximately 3 days ago, and he had multiple biopsies done. After this, he started noticing that he had melena. He also endorses some feelings of dehydration with his G-tube feeding times. He did state that it is prior to EGDs he had similar occurrences where he had bleeding after EGDs were completed. Of note, on admission his hemoglobin was 5.6, he received 2 units and it is now 7. This was also repeated 1 more time and it remains at 7.1. His BUN is mildly elevated 27, likely due to upper GI bleed. All other lab work was within normal limits. General surgery was spoken withwith the stabilization of the hemoglobin, there are no plans for repeat EGD. Patient would like to go home and lives a few minutes awayhe has a follow-up appointment with oncology on Saturday, where they we will be drawing his labs. Advised to remind him to recheck his hemoglobin. Patient was extensively advised that if he had any further dark bowel movements, large bowel movements with blood in them, lightheadedness, dizziness, feelings of fatigue to return to the hospital. He demonstrated understanding, and as such was deemed stable for discharge home. ALLERGIES Allergies Allergy/AdvReac Type Severity Reaction Status Date / Time No Known Drug Allergies Allergy Verified 06/25/24 18:29 MEDICATIONS Ambulatory Orders Medication Instructions Recorded Confirmed gabapentin 300 mg capsule 600 mg PO HS 11/22/21 06/27/24 tamsulosin 0.4 mg capsule 0.8 mg PO HS 11/22/21 06/27/24 valsartan 320 mg tablet 320 mg PO DAILY 11/22/21 06/27/24 zolpidem 5 mg tablet 10 mg PO HS 11/22/21 06/27/24 atorvastatin 40 mg tablet 40 mg PO HS 09/08/22 06/27/24 clomiphene citrate 50 mg tablet See Rx Instructions .Route .COMPLEX 09/08/22 06/27/24 (Clomid) mecobalamin (vitamin B12) 1,000 1,000 mcg PO DAILY 09/08/22 06/27/24 mcg chewable tablet (B12 Active) spironolactone 25 mg tablet See Rx Instructions .Route .COMPLEX 02/07/23 06/27/24 (Aldactone) clonidine 0.1 mg/24 hr weekly 06/27/24 transdermal patch pantoprazole 40 mg tablet,delayed 40 mg PO DAILY #30 tabs 06/27/24 release (Protonix) PHYSICAL EXAM AT DISCHARGE General Appearance: positive No acute distress and Alert Eyes Bilateral: positive Normal inspection, PERRL, EOMI and Conjunctivae nml Neck: positive Nml inspection, Thyroid nml and Trachea midline Respiratory: positive Chest non-tender, No respiratory distress and Breath sounds nml Cardiovascular: positive Regular rate & rhythm, No murmur and No gallop Abdomen: positive Non-tender, No organomegaly, Nml bowel sounds, No distention and Other (G tube in place with no erythema or drainage around the area) Back: positive Nml inspection; negative CVA tenderness (R) or CVA tenderness (L) Skin: positive Color nml, No rash and Dry Extremities: positive Non-tender, Full ROM and Nml appearance Neurologic/Psychiatric: positive Oriented x3 and Mood/affect nml LABS 06/27/24 11:11 06/27/24 05:30 FOLLOW UP Follow Up: Patient advised extensively to follow-up with his primary care physician and his oncologist. TIME SPENT Time Spent in Discharge (Minutes): 30 Discharge Plan Discharge Patient Disposition: Home, Self Care Condition: Stable Prescriptions: New pantoprazole [Protonix] 40 mg tablet,delayed release (DR/EC) 40 mg PO DAILY Qty: 30 2RF Continued zolpidem 5 MG tablet 10 mg PO HS Rx Instructions: 5MG QD gabapentin 300 MG capsule 600 mg PO HS atorvastatin 40 MG tablet 40 mg PO HS clomiphene citrate [Clomid] 50 MG tablet See Rx Instructions .Route .COMPLEX Rx Instructions: take on tablet Saturday and Saturday mecobalamin (vitamin B12) [B12 Active] 1,000 MCG tablet,chewable 1,000 mcg PO DAILY clonidine 0.1 mg/24 hr patch weekly Held valsartan 320 MG tablet 320 mg PO DAILY Hold Instructions: Resume on 06/29/24. Hold until you have no more episodes of melena and your blood pressure has stabilized. tamsulosin 0.4 MG capsule 0.8 mg PO HS Hold Instructions: Resume on 06/29/24. Hold until you have no more episodes of melena and your blood pressure has stabilized. spironolactone [Aldactone] 25 MG tablet See Rx Instructions .Route .COMPLEX Hold Instructions: Resume on 06/30/24. Hold until you have no more episodes of melena and your blood pressure has stabilized. Rx Instructions: QD Discontinued aspirin 81 MG tablet,delayed release (DR/EC) 81 mg PO DAILY Activity Restrictions: Activity as Tolerated Health Concerns: You came in because he been feeling weak, dehydrated, and had been having dark stools at home. He did state that you had EGD done on Saturday, and since then you have been noticing the dark stools. He mentioned that with your prior 2 EGDs, you had something similar happen to you. We talked about when you came in your hemoglobin, your blood level was 5.1. We gave you 2 units of blood, and this improved to 7.1. We talked about how you have a follow-up appointment with your oncologist on Saturday, just 2 days from now, and you are advised to let them know to recheck your hemoglobin to make sure it was stable prior to chemotherapy. We talked about how you were going to hold your spironolactone, valsartan, and tamsulosin for now and slowly restart them when your blood pressure improves insetting of this recent blood loss. We also talked about when to returnif you had a large bowel movement with streaks of blood in it or if it was tarry and black, if you are starting to feel weak, fatigued, and had similar symptoms of dehydration that brought you in this time. You mentioned that you live just a few minutes away, and lives close enough to the hospital to come in. Thank you for allowing us to take care of you, we are glad you are feeling better. Assessment: You understood our discussion regarding next steps and what to do. Plan of Treatment: 1. Follow-up with your oncologist on Saturday, have them recheck your hemoglobin levels. 2. Please continue to take Protonix 40mg daily. I have sent this to your pharmacy. 3. Hold your valsartan, tamsulosin, spironolactone until you have no more episodes of melena any blood pressure stable. 4. Contact your primary care physician about stopping aspirin indefinitely. 5. Please return to the hospital if you have any concerning symptoms including blood in your stool, dark tarry stools, lightheadedness, dizziness, fatigue. Patient Instructions: Bleeding Gastrointestinal, Anemia Stand Alone Forms: PCP List Follow-up Care: Ernesto Gill MD [Primary Care Provider] -"
[2024-06-27] MEDS ORDERED: TAMSULOSIN 0.4 MG CAPSULE GT SCH (21:00)
[2024-06-27] MEDS ORDERED: PANTOPRAZOLE 40 MG VIAL IVP SCH (21:00)
[2024-06-27] MEDS ORDERED: GABAPENTIN 300 MG CAPSULE GT SCH (21:00)
[2024-06-27] MEDS ORDERED: GABAPENTIN 300 MG CAPSULE PO SCH (21:00)
[2024-06-27] MEDS ORDERED: TAMSULOSIN 0.4 MG CAPSULE PO SCH (21:00)
== END 2024-06-27 12:24 | disposition home or self-care (01) ==
LOC: ED 19:39 → MS2 23:45
PROVIDERS: ADMIT Internal Medicine; ATTEND Internal Medicine